=== PATIENT | male | born 1930 | race Caucasian/White ===

== ENCOUNTER 2017-08-15 11:14 | Inpatient (IN) | payer OTHER, MEDICARE ==
[~2017-08-15] VITALS: Ht 182.9 cm; Wt 71.5 kg
[2017-08-15] VITALS (15 sets, daily range): BP systolic 129–155; BP diastolic 64–87; PULSE 63–159; RESP 16–22; TEMP 97.9–98.5; O2SAT 92–100
[~2017-08-15 11:14] MED LIST: APIX5TAB PO; CARD240C6 PO; CEPH500C3 PO; FERR324T4 PO; GEMF600 PO; LUTE40CA2 PO; METO25 PO; SYMB160A INH; TYLE3 PO; VITA100020 SL; VITA250T5 PO
[2017-08-15] MEDS ORDERED: DILTIAZEM HCL 25 MG/5 ML VIAL IV ONE (11:30)
[2017-08-15] MEDS ORDERED: SODIUM CHLORIDE 0.9% FLUSH 10 ML FLUSH IVF PRN (11:30)
[2017-08-15] MEDS ORDERED: DILTIAZEM INJ 125 MG in SODIUM CHLORIDE 0.9% INJ 100 ML IV PRN (11:30)
[2017-08-15 11:42] LABS: AUTOMATED NEUTROPHIL # 8.7 TH/MM3 (1.8-7.7); BASOPHIL % 0.3 % (0.0-2.0); EOSINOPHIL % 0.3 % (0.0-4.0); HEMATOCRIT 36.8 % (39.0-51.0); HEMOGLOBIN 12.5 GM/DL (13.0-17.0); LYMPH % 15.4 % (9.0-44.0); LYMPHOCYTE # 1.8 TH/MM3 (1.0-4.8); MEAN CELL VOLUME 93.1 FL (80.0-100.0); MEAN CORPUSCULAR HEMOGLOBIN 31.6 PG (27.0-34.0); MEAN PLATELET VOLUME 7.4 FL (7.0-11.0); MONO % 7.4 % (0.0-8.0); MONOCYTE # 0.8 TH/MM3 (0-0.9); NEUT % 76.6 % (16.0-70.0); PLATELET COUNT 180 TH/MM3 (150-450); RED BLOOD COUNT 3.96 MIL/MM3 (4.50-5.90); RED CELL DISTRIBUTION WIDTH 14.2 % (11.6-17.2); WHITE BLOOD COUNT 11.4 TH/MM3 (4.0-11.0)
[2017-08-15 11:53] LABS: ALBUMIN 4.4 GM/DL (3.4-5.0); ALT (GPT) 27 U/L (12-78); AST (GOT) 26 U/L (15-37); BLOOD UREA NITROGEN 16 MG/DL (7-18); CHLORIDE 102 MEQ/L (98-107); CREATININE 0.89 MG/DL (0.60-1.30); GLOMERULAR FILTRATION RATE 81 ML/MIN (>89); GLUCOSE,RANDOM 128 MG/DL (74-106); SODIUM (NA) 136 MEQ/L (136-145)
[2017-08-15 11:58] LABS: ALKALINE PHOSPHATASE 134 U/L (45-117); TOTAL BILIRUBIN ADULT 0.8 MG/DL (0.2-1.0); TOTAL PROTEIN 8.8 GM/DL (6.4-8.2); TROPONIN I LESS THAN 0.02 NG/ML (0.02-0.05)
--- NOTE | 2017-08-15 11:59 | RADRPT ---
EXAM DATE/TIME: 08/15/2017 11:31 [place] COMPARISON: CHEST SINGLE AP, March 08, 2016, 11:38. INDICATIONS : Chest pain. MEDICAL HISTORY : Hypercholesterolemia. Congestive heart failure. SURGICAL HISTORY : CABG. Pacemaker. Aortic valve replacement. ENCOUNTER: Initial ACUITY: 1 day PAIN SCORE: 5/10 LOCATION: Bilateral chest FINDINGS: Bibasilar streakiness is noted consistent with atelectasis and/or mild infiltrates. The heart is stab le. Left subclavian dual lead pacemaker has its tips in the right atrium and right ventricle. Median sternotomy wires are noted status post cardiac surgery. CONCLUSION: Bibasilar streakiness consistent with atelectasis and/or mild infiltrates. Jus Garduno MD on August 15, 2017 at 11:55 Board Certified Radiologist. This report was verified electronically.
[2017-08-15] MEDS ORDERED: APIX5TAB PO (12:00)
[2017-08-15] MEDS ORDERED: LOSA50TA PO (12:00)
[2017-08-15] MEDS ORDERED: LUTE40CA2 PO (12:00)
[2017-08-15] MEDS ORDERED: METO25TA3 PO (12:00)
[2017-08-15] MEDS ORDERED: FERR325T18 PO (12:00)
[2017-08-15] MEDS ORDERED: FISHCAP4 PO (12:00)
[2017-08-15] MEDS ORDERED: SYMB160A INH (12:00)
[2017-08-15] MEDS ORDERED: ISOS60TA PO (12:00)
[2017-08-15] MEDS ORDERED: GEMF600T PO (12:00)
[2017-08-15] MEDS ORDERED: DILT1TAB6 PO (12:00)
[2017-08-15] MEDS ORDERED: NALOXONE HCL 0.4 MG/ML AMP IV PUSH PRN (15:45)
[2017-08-15] MEDS ORDERED: SODIUM CHLORIDE 0.9% FLUSH 10 ML FLUSH IV FLUSH PRN (15:45)
--- NOTE | 2017-08-15 18:19 | HHI.HP ---
HPI Service [facility] Primary Care Physician Queta Payne Do, Admission Diagnosis tachyarrhythmia Diagnoses: Travel History International Travel<30 Days: No Contact w/Intl Traveler <30 Da: No Traveled to Known Affected Are: No History of Present Illness hx from patient, ER MD communication and review of med records 2 am today, woke up, coughing like crazy had chest pains terribly nose was running and coughing noticed that his pulse was very fast that time did nto go away during night by am chest pain went away a bit, cough was still there, congestion is gone pulse was still hihg went to dr bonner, and pulse was 160 - was told to go to ER - so daughter drove him here he was light headed slight , no passing out no fever cough is usually slight, but today is worse was able to expectorate, but did not notice color no diarrhea no abdominal pain no blood in stool or urine no other urinary symptoms no significant sick contacts hx of afib stated he missed two pills last night, one is blood thinner but in the morning , he took medications to control heart rate - this was before he went to Dr Bonner's office Review of Systems Except as stated in HPI: all other systems reviewed are Neg Past Family Social History Past Medical History htn afib bradycardia- s/p ppm 8 yrs ago, battery replaced 1 yr ago valve replacement - aortic, bovine, 3 yrs ago cad s/p cabg 3 yrs ago copd 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 Past Surgical History cabg valve replacement - aortic coronary angiogram ppm 1970s subtotal gastrectomy for ulcers Allergies: Coded Allergies: No Known Allergies (Verified , 03/08/16) Family History mother- cancer of female parts brother- from etoh abuse another brother- drug abuse Social History used to smoke , quit 1971 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 used to drink heavily, but now drinks about 2 beers and 4 ounces of vodka about 5-6 times a week no drugs lives on his own, still drives, goes to gym and runs 2 miles on treadmill a day Physical Exam Vital Signs Vital Signs Date Time Temp Pulse Resp B/P (MAP) Pulse Ox O2 Delivery O2 Flow Rate FiO2 08/15/17 17:00 97.9 92 18 148/72 (97) 97 08/15/17 17:00 92 08/15/17 16:39 79 18 146/72 (96) 96 Room Air 08/15/17 15:14 68 22 155/70 (98) 96 Room Air 08/15/17 14:09 72 16 133/64 (87) 95 Room Air 08/15/17 13:36 63 17 129/64 (85) 97 Room Air 08/15/17 11:47 132 132/72 08/15/17 11:30 98 Nasal Cannula 2.00 08/15/17 11:30 100 Nasal Cannula 2.00 08/15/17 11:25 100 Nasal Cannula 2.00 08/15/17 11:20 98.3 158 18 136/84 (101) 98 08/15/17 11:16 98.1 159 18 137/86 (103) 95 Room Air Physical Exam GENERAL: This is a well-nourished, well-developed patient, in no apparent distress. very pleasant gentleman SKIN: No rashes, ecchymoses or lesions. Cool and dry. HEAD: Atraumatic. Normocephalic. No temporal or scalp tenderness. EYES: No scleral icterus. No injection or drainage. ENT: Nose without bleeding, purulent drainage or septal hematoma Airway patent. NECK: Trachea midline. No JVD. Supple, nontender, no meningeal signs. CARDIOVASCULAR: Regular rate and rhythm without murmurs, gallops, or rubs. RESPIRATORY: Clear to auscultation. Breath sounds equal bilaterally. No wheezes , rales, or rhonchi. GASTROINTESTINAL: Abdomen soft, non-tender, nondistended. No guarding. MUSCULOSKELETAL: Extremities without clubbing, cyanosis, or edema. . No calf tenderness. NEUROLOGICAL: Awake and alert.Motor and sensory grossly within normal limits. Normal speech. Laboratory Laboratory Tests Test 08/15/17 11:34 White Blood Count 11.4 Red Blood Count 3.96 Hemoglobin 12.5 Hematocrit 36.8 Mean Corpuscular Volume 93.1 Mean Corpuscular Hemoglobin 31.6 Mean Corpuscular Hemoglobin Concent 34.0 Red Cell Distribution Width 14.2 Platelet Count 180 Mean Platelet Volume 7.4 Neutrophils (%) (Auto) 76.6 Lymphocytes (%) (Auto) 15.4 Monocytes (%) (Auto) 7.4 Eosinophils (%) (Auto) 0.3 Basophils (%) (Auto) 0.3 Neutrophils # (Auto) 8.7 Lymphocytes # (Auto) 1.8 Monocytes # (Auto) 0.8 Eosinophils # (Auto) 0.0 Basophils # (Auto) 0.0 CBC Comment DIFF FINAL Differential Comment Blood Urea Nitrogen 16 Creatinine 0.89 Random Glucose 128 Total Protein 8.8 Albumin 4.4 Calcium Level 9.0 Alkaline Phosphatase 134 Aspartate Amino Transf (AST/SGOT) 26 Alanine Aminotransferase (ALT/SGPT) 27 Total Bilirubin 0.8 Sodium Level 136 Potassium Level 4.0 Chloride Level 102 Carbon Dioxide Level 27.0 Anion Gap 7 Estimat Glomerular Filtration Rate 81 Troponin I LESS THAN 0.02 Result Diagram: 08/15/17 1134 08/15/17 1134 Imaging Last 48 hours Impressions Chest X-Ray 08/15/17 1126 Signed Impressions: Service Date/Time: Tuesday, August 15, 2017 11:31 - CONCLUSION: Bibasilar streakiness consistent with atelectasis and/or mild infiltrates. Jus Garduno MD Caprini VTE Risk Assessment Caprini VTE Risk Assessment: Mod/High Risk (score >= 2) Caprini Risk Assessment Model Point Value = 1 Point Value = 2 Point Value = 3 Point Value = 5 Age 41-60 Minor surgery BMI > 25 kg/m2 Swollen legs Varicose veins or History of unexplained or recurrent spontaneous Oral contraceptives or hormone replacement Sepsis (< 1 month) Serious lung disease, including pneumonia (< 1 month) Abnormal pulmonary function Acute myocardial infarction Congestive heart failure (< 1 month) History of inflammatory bowel disease Medical patient at bed rest Age 61-74 Arthroscopic surgery Major open surgery (> 45 min) Laparoscopic surgery (> 45 min) Malignancy Confined to bed (> 72 hours) Immobilizing plaster cast Central venous access Age >= 75 History of VTE Family history of VTE Factor V Leiden Prothrombin [id number] Lupus anticoagulant Anticardiolipin antibodies Elevated serum homocysteine Heparin-induced thrombocytopenia Other congenital or acquired thrombophilia Stroke (< 1 month) Elective arthroplasty Hip, pelvis, or leg fracture Acute spinal cord injury (< 1 month) Prophylaxis Regimen Total Risk Factor Score Risk Level Prophylaxis Regimen 0-1 Low Early ambulation 2 Moderate Order ONE of the following: *Sequential Compression Device (SCD) *Heparin 5000 units SQ BID 3-4 Higher Order ONE of the following medications: *Heparin 5000 units SQ TID *Enoxaparin/Lovenox 40 mg SQ daily (WT < 150 kg, CrCl > 30 mL/min) *Enoxaparin/Lovenox 30 mg SQ daily (WT < 150 kg, CrCl > 10-29 mL/min) *Enoxaparin/Lovenox 30 mg SQ BID (WT < 150 kg, CrCl > 30 mL/min) AND/OR *Sequential Compression Device (SCD) 5 or more Highest Order ONE of the following medications: *Heparin 5000 units SQ TID (Preferred with Epidurals) *Enoxaparin/Lovenox 40 mg SQ daily (WT < 150 kg, CrCl > 30 mL/min) *Enoxaparin/Lovenox 30 mg SQ daily (WT < 150 kg, CrCl > 10-29 mL/min) *Enoxaparin/Lovenox 30 mg SQ BID (WT < 150 kg, CrCl > 30 mL/min) AND *Sequential Compression Device (SCD) Assessment and Plan Assessment and Plan Impression: afib with rvr - secondary to acute infection plus missing meds bilateral pneumonia - early but symptomatic with constant cough htn afib bradycardia- s/p ppm 8 yrs ago, battery replaced 1 yr ago valve replacement - aortic, bovine, 3 yrs ago cad s/p cabg 3 yrs ago copd 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 Plan: start levofloxacin 750mg iv q24hrs cardizem drip was d/rojas within few hrs in ER restart home dose of rate control meds nursing to call daughter to update med rec- current one is not valid PT eval in am make pt walk around and see how he feels in terms of o2 sat and tachycardia in am if all well, and if he feels strong, likely could be discharged in am with po levofloxacin dvt prophylaxis - on eliquis pt is admitted as inpatient, symptomatic bilateral pneumonia with tachycardia, multiple medical comorbid conditions Discussed Condition With patient, ER MD, nursing staff Beba Watson MD Aug 15, 2017 18:19
--- NOTE | 2017-08-15 18:32 | PD ---
HPI Chief Complaint: Chest Pain Time Seen by Provider: 11:19 Travel History International Travel<30 days: No Contact w/Intl Traveler<30days: No Traveled to known affect area: No History of Present Illness HPI This is an 86-year-old male who presents to the emergency department with a history of atrial fibrillation, CABG, valvular surgery and pacemaker who presents to the emergency department with a rapid heart rate that woke him up from sleep at 2 AM. He says he felt palpitations, constant, moderate severity, with some associated chest heaviness. He says he did miss his nighttime medicines last night but he took his diltiazem in the morning yesterday and today. The rapid heart rate has persisted throughout the morning and has been in the 150s to 160s so he came to the emergency department. PFSH Past Medical History Hx Anticoagulant Therapy: Yes Arthritis: Yes (BACK) Asthma: No Atrial Fibrillation: Yes Autoimmune Disease: No Blood Disorders: No Anxiety: No Depression: No Heart Rhythm Problems: Yes (AF AT TIMES) Cancer: Yes (SKIN) Cardiac Catheterization: Yes (2 CARDIAC CATHS AROUND 20 YEARS AGO) Cardiovascular Problems: Yes High Cholesterol: Yes Chemotherapy: No Chest Pain: Yes Congestive Heart Failure: Yes COPD: No Cerebrovascular Accident: Yes (TIA X 2) Diabetes: No Diminished Hearing: No Endocrine: No Gastrointestinal Disorders: Yes (ULCER HX/ HEMIGASTRECTOMY, GERD, DIARRHEA) GERD: No Glaucoma: Yes Genitourinary: No Headaches: Yes Hepatitis: No Hiatal Hernia: No Hypertension: Yes Immune Disorder: No Kidney Stones: No Musculoskeletal: Yes (BACK PAIN) Neurologic: Yes (RIGHT ARM TRANSIENT NUMBNESS/ UNSTEADY GAIT) Psychiatric: Yes (CLAUSTRAPHOBIA) Reproductive: No Respiratory: No Migraines: No Myocardial Infarction: No Radiation Therapy: No Renal Failure: No Seizures: No Sickle Cell Disease: No Sleep Apnea: No Thyroid Disease: No Ulcer: Yes Past Surgical History Abdominal Surgery: Yes (HEMIGASTRECTOMY) AICD: No Appendectomy: No Arteriovenous Shunt: No Body Medical Devices: PACEMAKER FOR 6 YEARS Cardiac Surgery: Yes (aortic heart valve, and bypass. cardiac ABLATION, pacer) Cholecystectomy: No Coronary Artery Bypass Graft: Yes Ear Surgery: No Endocrine Surgery: No Eye Surgery: No Genitourinary Surgery: No Gynecologic Surgery: No Insulin Pump: No Joint Replacement: No Neurologic Surgery: No Oral Surgery: No Pacemaker: Yes (BIOTRONIC) Thoracic Surgery: No Valve Replacement: Yes Other Surgery: Yes Social History Alcohol Use: Yes Tobacco Use: No Substance Use: No Allergies-Medications (Allergen,Severity, Reaction): Coded Allergies: No Known Allergies (Verified , 03/08/16) Reported Meds & Prescriptions Reported Meds & Active Scripts Active Keflex (Cephalexin Monohydrate) 500 Mg Cap 500 Mg PO TID Reported Diltiazem ER 24 HR 300 Mg Arabella 300 Mg PO DAILY Metoprolol Tartrate 25 Mg Tab 25 Mg PO BID Losartan (Losartan Potassium) 50 Mg Tab 50 Mg PO DAILY Lutein 40 Mg Cap 40 Mg PO DAILY Ferrous Sulfate 325 Mg (65 Mg Iron) Tablet 325 Mg PO DAILY Symbicort Inh (Budesonide/Formoterol Fumarate) 160-4.5 Mcg/Act Aero 2 Puff INH Q12HR Isosorbide Mononitrate ER (Isosorbide Mononitrate) 60 Mg Tab 60 Mg PO DAILY Eliquis (Apixaban) 5 Mg Tab 5 Mg PO BID Gemfibrozil 600 Mg Tab 600 Mg PO BIDAC Take 30 minutes prior to breakfast and dinner. Fish Oil + D3 (Fish Oil-Cholecalciferol) 1,200-1,000 Mg-Unit Cap 1 Cap PO DAILY Symbicort (Budesonide/Formoterol Fumarate) 160 Mcg/4.5 Mcg Aer 2 Puff INH BID * SHAKE WELL BEFORE USE * Vitamin B-12 Extended Rel (Miscellaneous Medication) 1,000 Mcg Subl 1,000 Mcg SL DAILY Ferrous Sulfate 325 Mg Tab 325 Mg PO DAILY Lutein 40 Mg Cap 40 Mg PO DAILY Vitamin B-12 (Cyanocobalamin) 250 Mcg Tab 250 Mcg PO DAILY Metoprolol Tartrate 25 mg (Metoprolol Tartrate) 25 Mg Tab 25 Mg PO BID Cardizem CD 240 mg (Diltiazem CD 240 mg) 240 Mg/24 Cap 240 Mg PO DAILY Lopid (Gemfibrozil) 600 Mg Tab 600 Mg PO BID Review of Systems Except as stated in HPI: all other systems reviewed are Neg Physical Exam Narrative GENERAL:Well appearing, no acute distress SKIN: Focused skin assessment warm and dry. HEAD: Atraumatic. Normocephalic. EYES: Pupils equal and round. No injection or drainage. ENT: Moist mucous membranes NECK: Trachea midline. CARDIOVASCULAR: Tachycardic. No murmur appreciated. RESPIRATORY: Clear to auscultation. Breath sounds equal bilaterally. GASTROINTESTINAL: Abdomen soft, non-tender, nondistended. MUSCULOSKELETAL: No obvious deformities. NEUROLOGICAL: Awake and alert. No obvious cranial nerve deficits. Moving all extremities. PSYCHIATRIC: Appropriate mood and affect; insight and judgment normal. Data Data Last Documented VS Vital Signs Date Time Temp Pulse Resp B/P (MAP) Pulse Ox O2 Delivery O2 Flow Rate FiO2 08/15/17 15:14 68 22 155/70 (98) 96 Room Air 08/15/17 11:30 2.00 08/15/17 11:20 98.3 Orders Orders Electrocardiogram (08/15/17 11:26) Complete Blood Count With Diff (08/15/17 11:26) Comprehensive Metabolic Panel (08/15/17 11:26) Troponin I (08/15/17 11:26) Chest, Single Ap (08/15/17 11:26) Ecg Monitoring (08/15/17 11:26) Bilateral Bp Monitoring (08/15/17 11:26) Iv Access Insert/Monitor (08/15/17 11:26) Oximetry (08/15/17 11:26) Oxygen Administration (08/15/17 11:26) Sodium Chloride 0.9% Flush (Ns Flush) (08/15/17 11:30) Diltiazem Inj (Cardizem Inj) (08/15/17 11:30) Vital Signs (Adult) Q15MX4,Q4H (08/15/17 11:26) Elocution Teacher / Telemetry ZAHRA.Q8H (08/15/17 11:26) Cardiac Rhythm ZAHRA.Q8H (08/15/17 11:26) Notify Dr: Other (08/15/17 11:26) Diltiazem Inj (Cardizem Inj) (08/15/17 11:30) Electrocardiogram (08/15/17 11:26) Admit Order (Ed Use Only) (08/15/17 15:17) Labs Laboratory Tests Test 08/15/17 11:34 White Blood Count 11.4 TH/MM3 Red Blood Count 3.96 MIL/MM3 Hemoglobin 12.5 GM/DL Hematocrit 36.8 % Mean Corpuscular Volume 93.1 FL Mean Corpuscular Hemoglobin 31.6 PG Mean Corpuscular Hemoglobin Concent 34.0 % Red Cell Distribution Width 14.2 % Platelet Count 180 TH/MM3 Mean Platelet Volume 7.4 FL Neutrophils (%) (Auto) 76.6 % Lymphocytes (%) (Auto) 15.4 % Monocytes (%) (Auto) 7.4 % Eosinophils (%) (Auto) 0.3 % Basophils (%) (Auto) 0.3 % Neutrophils # (Auto) 8.7 TH/MM3 Lymphocytes # (Auto) 1.8 TH/MM3 Monocytes # (Auto) 0.8 TH/MM3 Eosinophils # (Auto) 0.0 TH/MM3 Basophils # (Auto) 0.0 TH/MM3 CBC Comment DIFF FINAL Differential Comment Blood Urea Nitrogen 16 MG/DL Creatinine 0.89 MG/DL Random Glucose 128 MG/DL Total Protein 8.8 GM/DL Albumin 4.4 GM/DL Calcium Level 9.0 MG/DL Alkaline Phosphatase 134 U/L Aspartate Amino Transf (AST/SGOT) 26 U/L Alanine Aminotransferase (ALT/SGPT) 27 U/L Total Bilirubin 0.8 MG/DL Sodium Level 136 MEQ/L Potassium Level 4.0 MEQ/L Chloride Level 102 MEQ/L Carbon Dioxide Level 27.0 MEQ/L Anion Gap 7 MEQ/L Estimat Glomerular Filtration Rate 81 ML/MIN Troponin I LESS THAN 0.02 NG/ML MDM Medical Decision Making Medical Screen Exam Complete: Yes Emergency Medical Condition: Yes Interpretation(s) Afebrile, tachycardic, normotensive Mild leukocytosis Mild anemia Electrolytes are reassuring Troponin is less than 0.02 Chest x-ray demonstrates some bibasilar streakiness EKG: Tachycardic at a rate of 130, irregular, concerning for atrial fibrillation Differential Diagnosis Atrial fibrillation with rapid ventricular response, SVT, electrolyte abnormality, myocardial infarction Narrative Course This is an 86-year-old male who presents to the emergency department with palpitations. He has a history of atrial fibrillation in the past and failed to take his rate control medications last evening which may have contributed to his presentation today. Here he was placed on a monitor and an IV was established. With the VAC his heart rate was in the 150s 160s and their rhythm strips appeared irregular concerning for atrial fibrillation. Here in the emergency department he was given 15 mg of IV diltiazem. He was placed on a diltiazem drip at 5. He was able to be titrated off of the infusion. His heart rate improved to the 70s to 80s. He did have some chest discomfort. Labs are obtained which were all reassuring. I think patient should be observed in the setting of tachyarrhythmia and extensive cardiac history. Diagnosis Primary Impression: Tachyarrhythmia Admitting Information Admitting Physician Requests: Admit Abbey Graf MD Aug 15, 2017 18:32
[2017-08-15] MEDS ORDERED: LISI10TA3 PO (18:35)
[2017-08-15] MEDS: GEMFIBROZIL 600 MG TAB PO SCH (22:10)
[2017-08-15] MEDS: LEVOFLOXACIN 750 MG PREMIX INJ 150 ML IV SCH (22:11)
[2017-08-15] MEDS: APIXABAN 5 MG TABLET PO SCH (22:11)
[2017-08-15] MEDS: SODIUM CHLORIDE 0.9% FLUSH 10 ML FLUSH IV FLUSH SCH (22:11)
[2017-08-15 22:24] LABS: TROPONIN I 0.03 NG/ML (0.02-0.05)
[2017-08-16] VITALS (24 sets, daily range): BP systolic 99–146; BP diastolic 49–93; PULSE 64–158; RESP 16–24; TEMP 98–98.9; O2SAT 91–94
[2017-08-16 03:33] LABS: AUTOMATED NEUTROPHIL # 6.8 TH/MM3 (1.8-7.7); BASOPHIL % 0.4 % (0.0-2.0); EOSINOPHIL # 0.1 TH/MM3 (0-0.4); HEMATOCRIT 34.2 % (39.0-51.0); LYMPH % 16.7 % (9.0-44.0); LYMPHOCYTE # 1.5 TH/MM3 (1.0-4.8); MEAN CORPUSCULAR HEMOGLOBIN 32.4 PG (27.0-34.0); MEAN CORPUSCULAR HGB CONC 35.2 % (32.0-36.0); MEAN PLATELET VOLUME 7.5 FL (7.0-11.0); MONO % 8.2 % (0.0-8.0); MONOCYTE # 0.7 TH/MM3 (0-0.9); NEUT % 73.7 % (16.0-70.0); PLATELET COUNT 183 TH/MM3 (150-450); RED BLOOD COUNT 3.72 MIL/MM3 (4.50-5.90); WHITE BLOOD COUNT 9.2 TH/MM3 (4.0-11.0)
[2017-08-16 03:51] LABS: BICARBONATE 27.7 MEQ/L (21.0-32.0); CALCIUM 8.8 MG/DL (8.5-10.1); CREATININE 0.71 MG/DL (0.60-1.30)
[2017-08-16 03:54] LABS: TROPONIN I 0.03 NG/ML (0.02-0.05)
[2017-08-16] MEDS ORDERED: LISINOPRIL 10 MG TAB PO SCH (09:00)
[2017-08-16] MEDS ORDERED: DILTIAZEM INJ 125 MG in SODIUM CHLORIDE 0.9% INJ 100 ML IV PRN (09:45)
[2017-08-16] MEDS ORDERED: LABETALOL HCL 100 MG/20 ML VIAL IV PUSH ONE (09:45)
[2017-08-16] MEDS ORDERED: DILTIAZEM HCL 25 MG/5 ML VIAL IV PUSH ONE (09:45)
[2017-08-16] MEDS: ISOSORBIDE MONONITRATE 60 MG TAB PO SCH (10:21)
[2017-08-16] MEDS: APIXABAN 5 MG TABLET PO SCH ×2 (10:22→20:32)
[2017-08-16] MEDS: DILTIAZEM-CD 300 MG CAP ER PO SCH (10:22)
[2017-08-16] MEDS: GEMFIBROZIL 600 MG TAB PO SCH ×2 (10:22→20:31)
[2017-08-16] MEDS: FERROUS FUMARATE 325 MG TAB (106 MG ELEMENTAL IRON) PO SCH (10:22)
[2017-08-16] MEDS: SODIUM CHLORIDE 0.9% FLUSH 10 ML FLUSH IV FLUSH SCH ×2 (10:23→20:32)
--- NOTE | 2017-08-16 10:47 | HHI.PR ---
Subjective Remarks Pt was evaluated around 9:30 this morning. I was notified that pt's HR was in the 160's. apparently this was noted for about 20 mins. I quickly evaluated the pt, he had just gotten for a walk w PT and HR was up. Pt now eating breakfast. He states he did feel some palpitations w walking but when I saw him, sitting up in his bed, he had no symptoms, no lightheadedness or dizziness. Pt denied to me any chest pains. Actually asked me if he could go home today Objective Vitals Vital Signs Date Time Temp Pulse Resp B/P (MAP) Pulse Ox O2 Delivery O2 Flow Rate FiO2 08/16/17 10:27 155 127/93 08/16/17 09:00 124 08/16/17 08:00 110 08/16/17 07:00 123 08/16/17 07:00 98.9 110 16 128/83 (98) 94 08/16/17 06:03 104 08/16/17 05:21 86 08/16/17 04:32 80 08/16/17 03:30 94 08/16/17 03:30 98.1 98 19 146/79 (101) 94 08/16/17 02:02 114 08/16/17 01:09 96 08/16/17 00:27 101 08/15/17 23:20 98.5 109 18 145/87 (106) 92 08/15/17 23:10 82 08/15/17 22:30 100 08/15/17 21:00 88 08/15/17 20:30 92 08/15/17 19:40 94 08/15/17 19:40 98.4 82 18 146/80 (102) 94 08/15/17 18:00 80 08/15/17 17:00 97.9 92 18 148/72 (97) 97 08/15/17 17:00 92 08/15/17 16:39 79 18 146/72 (96) 96 Room Air 08/15/17 15:14 68 22 155/70 (98) 96 Room Air 08/15/17 14:09 72 16 133/64 (87) 95 Room Air 08/15/17 13:36 63 17 129/64 (85) 97 Room Air 08/15/17 11:47 132 132/72 08/15/17 11:30 98 Nasal Cannula 2.00 1/3/18 11:30 100 Nasal Cannula 2.00 08/15/17 11:25 100 Nasal Cannula 2.00 08/15/17 11:20 98.3 158 18 136/84 (101) 98 08/15/17 11:16 98.1 159 18 137/86 (103) 95 Room Air I/O 08/15/17 08/15/17 08/15/17 08/16/17 08/16/17 08/16/17 07:00 15:00 23:00 07:00 15:00 23:00 Intake Total 12 ml 390 ml Balance 12 ml 390 ml Intake Oral 240 ml IV Total 12 ml 150 ml # Voids 4 Result Diagram: 08/16/17 0313 08/16/17 0313 Imaging Last Impressions Chest X-Ray 08/15/17 1126 Signed Impressions: Service Date/Time: Tuesday, August 15, 2017 11:31 - CONCLUSION: Bibasilar streakiness consistent with atelectasis and/or mild infiltrates. Jus Garduno MD Objective Remarks GENERAL: Elderly male, eating breakfast. HEAD: Atraumatic. Normocephalic. No temporal or scalp tenderness. EYES: Extraocular motions intact. ENT: Nose without drainage. Airway patent. NECK: Trachea midline. CARDIOVASCULAR: tachycardic. difficult to know if it is irregular at this point RESPIRATORY: Clear to auscultation. Breath sounds equal bilaterally. No wheezes GASTROINTESTINAL: Abdomen soft, non-tender, nondistended. No guarding. MUSCULOSKELETAL: Extremities without edema. NEUROLOGICAL: Awake and alert. Motor and sensory grossly within normal limits. Normal speech. A/P Assessment and Plan afib with rvr - secondary to acute infection plus missing meds bilateral pneumonia - early but symptomatic with constant cough on levofloxacin 750mg iv q24hrs I have restarted the cardizem drip as it was d/rojas within few hrs in ER. Pt's home meds have been restarted. Pt tells me that he is known to Dr. Maria. I have consulted her for further recs. restart home dose of rate control meds PT did work w pt this morning. if all well, and if he feels strong, likely could be discharged in am with po levofloxacin I have reviewed chest x-ray, concerning for mild infiltrates vs atelectasis. encourage us of IS q1hr while awake. dvt prophylaxis : eliquis Discharge Planning cards consult pending. cardizem gtt restarted. Addie Acevedo MD Aug 16, 2017 10:47
[2017-08-16] MEDS ORDERED: METOPROLOL TARTRATE 25 MG TAB PO ONE (11:30)
--- NOTE | 2017-08-16 18:39 | MB ---
cc: CINTHIA FERREIRA MD DATE OF CONSULTATION 08/16/17 REASON FOR CONSULTATION Atrial fibrillation with rapid ventricular rate. HISTORY OF PRESENT ILLNESS Mr. Ramon is an 86-year-old man who does have a history of CHF, Atrial fibrillation, previous coronary artery bypass graft with VERDE to LAD and AVR in October of 2013. The patient reports that he woke up in the morning coughing and had a rapid heartbeat. He did subsequently come to the hospital for further evaluation. The patient reports that he missed some of his medications and notes that he did take his Diltiazem and had not missed that. In the emergency room, he was found to have bibasilar pneumonia and A. Fib with RVR at 150 beats a minute. PAST MEDICAL HISTORY 1. Significant for aortic stenosis with AVR in 2013, atrial fibrillation with a CHADS vasc score of four. He is status post ablation in September of 2010 with recurrent atrial fibrillation. 2. Carotid artery stenosis that is mild to moderate bilaterally. 3. CHF, 4. CAD with previous coronary artery bypass graft 5. CVA, 6. Diabetes 7. Hypertension, 8. Hyperlipidemia 9. Moderate mitral regurgitation 10. Biotronik pacemaker 11. Ulcers with partial gastrectomy 12. Vertigo. SOCIAL HISTORY The patient is a former smoker. FAMILY HISTORY Negative for CAD. ALLERGIES NO KNOWN DRUG ALLERGIES. MEDICATIONS Outpatient include 1. Diltiazem 300 mg a day, 2. Eliquis 5 mg b.i.d. 3. Iron 4. Gemfibrozil 5. Imdur 30 mg a day. 6. Lisinopril 10 mg a day 7. Lutein 8. Symbicort 9. B12. REVIEW OF SYSTEMS Except as mentioned in the HPI all 12 systems are negative. PHYSICAL EXAMINATION VITAL SIGNS: 80, 127/93, respiratory rate 16. GENERAL: He is a well-appearing man who is in no apparent distress. NECK: Free from JVD. LUNGS: Bilaterally clear although decreased in the bases. CARDIOVASCULAR: He has a regular rhythm. Heart tones are normal. ABDOMEN: Soft. EXTREMITIES: Free from edema. LABORATORY FINDINGS Initial white count of 11.4, his hemoglobin is 12.0. Serial troponins are 0.02, 0.03, 0.03. Creatinine is 0.71. IMAGING STUDIES Chest x-ray shows bibasilar infiltrates. CARDIOLOGY STUDIES EKG shows atrial fibrillation with rapid ventricular rate at 157 beats a minute. IMPRESSION 1. Atrial fibrillation - the patient does have a history of the same. He was rate controlled with IV Cardizem. I am going to add metoprolol 25 mg q. 12 to assist with his rate control. I would continue the patient on Eliquis. 2. Pneumonia - this is being managed by the primary team. 3. Coronary artery disease - the patient seems reasonably stable at this point. 4. Hypertension - I am going to discontinue his lisinopril to ensure we have some room with his blood pressure given we are adding the metoprolol. Cinthia Ferreira M.D. ZEB/ /4:23 PM /6:04 PM
[2017-08-16] MEDS: LEVOFLOXACIN 750 MG PREMIX INJ 150 ML IV SCH (20:32)
[2017-08-16] MEDS: METOPROLOL TARTRATE 25 MG TAB PO SCH (20:32)
[2017-08-17] VITALS (12 sets, daily range): BP systolic 122–126; BP diastolic 69–77; PULSE 64–121; RESP 20; TEMP 98.2–98.4; O2SAT 92–93
--- NOTE | 2017-08-17 08:37 | PD.CARD.PN ---
Subjective Subjective Remarks PT without CV complaints Objective Medications Current Medications Medications (Trade) Dose Ordered Sig/[place] Route Start Time Stop Time Status Last Admin (NS Flush) 2 ml UNSCH PRN IV FLUSH 08/15/17 15:45 (NS Flush) 2 ml BID IV FLUSH 08/15/17 21:00 08/16/17 20:32 (Narcan Inj) 0.4 mg UNSCH PRN IV PUSH 08/15/17 15:45 Levofloxacin/ Dextrose 150 ml @ 100 mls/hr Q24H IV 08/15/17 19:00 08/16/17 20:32 (Eliquis) 5 mg BID PO 08/15/17 21:00 08/16/17 20:32 (Cardizem Cd) 300 mg DAILY PO 08/16/17 09:00 08/16/17 10:22 (Lopid) 600 mg BID PO 08/15/17 21:00 08/16/17 20:31 (Imdur) 60 mg DAILY PO 08/16/17 09:00 08/16/17 10:21 (Hemocyte) 325 mg DAILY PO 08/16/17 09:00 08/16/17 10:22 Diltiazem HCl 125 mg/Sodium Chloride 125 ml @ 5 mls/hr TITRATE PRN IV 08/16/17 09:45 08/16/17 10:27 (Lopressor) 25 mg Q12HR PO 08/16/17 21:00 08/16/17 20:32 Vital Signs / I&O Vital Signs Date Time Temp Pulse Resp B/P (MAP) Pulse Ox O2 Delivery O2 Flow Rate FiO2 08/17/17 07:31 93 Room Air 08/17/17 07:31 98.4 78 20 122/77 (92) 93 08/17/17 06:00 80 08/17/17 05:00 74 08/17/17 04:00 64 08/17/17 03:00 70 08/17/17 03:00 98.2 76 20 126/69 (88) 92 08/17/17 03:00 92 Room Air 08/17/17 02:00 74 08/17/17 01:00 72 08/17/17 00:00 76 08/16/17 23:00 91 Room Air 08/16/17 23:00 70 1/4/18 23:00 98.2 73 22 116/59 (78) 91 08/16/17 22:00 76 08/16/17 21:00 88 08/16/17 20:00 72 08/16/17 19:00 98.0 77 24 99/54 (69) 91 08/16/17 19:00 91 Room Air 08/16/17 19:00 64 08/16/17 18:00 96 08/16/17 17:00 64 08/16/17 16:00 74 08/16/17 15:00 98.4 78 18 101/49 (66) 93 08/16/17 15:00 93 Room Air 08/16/17 15:00 82 08/16/17 14:00 80 08/16/17 13:00 106 08/16/17 12:00 98 08/16/17 11:00 94 Room Air 08/16/17 11:00 155 16 127/93 (104) 94 08/16/17 11:00 102 08/16/17 10:27 155 127/93 08/16/17 10:00 158 08/16/17 09:00 124 I/O 08/16/17 08/16/17 08/16/17 08/17/17 08/17/17 08/17/17 07:00 15:00 23:00 07:00 15:00 23:00 Intake Total 390 ml 990.6 ml 240 ml Output Total 300 ml Balance 390 ml 990.6 ml -60 ml Intake Oral 240 ml 960 ml 240 ml IV Total 150 ml 30.6 ml Output Urine Total 300 ml # Voids 4 3 # Bowel Movements 1 Physical Exam GENERAL: Well developed, well nourished. No acute distress. HEENT: Jugular venous pressure is normal. CHEST: Lungs clear to auscultation bilaterally. Unlabored respiratory effort. CARDIAC: Regular rate and rhythm without S3, S4, or murmur. ABDOMEN: Soft, nontender, no hepatosplenomegaly. Bowel sounds present. EXTREMITIES: No clubbing, cyanosis, or edema. Imaging Last 72 hours Impressions Chest X-Ray 08/15/17 1126 Signed Impressions: Service Date/Time: Tuesday, August 15, 2017 11:31 - CONCLUSION: Bibasilar streakiness consistent with atelectasis and/or mild infiltrates. Jus Garduno MD Assessment and Plan Assessment and Plan AF - rate controlled on PO diltiazem and metoprolol; continue same Pneumonia- antibiotics per primary team Dispo- ok for d/c from CV perspective and follow up next week -available PRStephany Pringle MD Aug 17, 2017 08:37
[2017-08-17] MEDS ORDERED: METO25TA3 PO (08:55)
[2017-08-17] MEDS ORDERED: LEVA750T9 PO (08:59)
--- NOTE | 2017-08-17 09:01 | HHI.PR ---
Subjective Remarks Pt feeling well. Denies any CP/SOB/palpitations/n/v or any lightheadedness or dizziness. asks to go home today Objective Vitals Vital Signs Date Time Temp Pulse Resp B/P (MAP) Pulse Ox O2 Delivery O2 Flow Rate FiO2 08/17/17 07:31 93 Room Air 08/17/17 07:31 98.4 78 20 122/77 (92) 93 08/17/17 06:00 80 08/17/17 05:00 74 08/17/17 04:00 64 08/17/17 03:00 70 08/17/17 03:00 98.2 76 20 126/69 (88) 92 08/17/17 03:00 92 Room Air 08/17/17 02:00 74 08/17/17 01:00 72 08/17/17 00:00 76 08/16/17 23:00 91 Room Air 08/16/17 23:00 70 08/16/17 23:00 98.2 73 22 116/59 (78) 91 08/16/17 22:00 76 08/16/17 21:00 88 08/16/17 20:00 72 08/16/17 19:00 98.0 77 24 99/54 (69) 91 08/16/17 19:00 91 Room Air 08/16/17 19:00 64 08/16/17 18:00 96 08/16/17 17:00 64 08/16/17 16:00 74 08/16/17 15:00 98.4 78 18 101/49 (66) 93 08/16/17 15:00 93 Room Air 08/16/17 15:00 82 08/16/17 14:00 80 08/16/17 13:00 106 08/16/17 12:00 98 08/16/17 11:00 94 Room Air 08/16/17 11:00 155 16 127/93 (104) 94 08/16/17 11:00 102 08/16/17 10:27 155 127/93 08/16/17 10:00 158 08/16/17 09:00 124 I/O 08/16/17 08/16/17 08/16/17 08/17/17 08/17/17 08/17/17 06:59 14:59 22:59 06:59 14:59 22:59 Intake Total 390 ml 990.6 ml 240 ml Output Total 300 ml Balance 390 ml 990.6 ml -60 ml Intake Oral 240 ml 960 ml 240 ml IV Total 150 ml 30.6 ml Output Urine Total 300 ml # Voids 4 3 # Bowel Movements 1 Result Diagram: 08/16/17 0313 08/16/17 0313 Imaging Last Impressions Chest X-Ray 08/15/17 1126 Signed Impressions: Service Date/Time: Tuesday, August 15, 2017 11:31 - CONCLUSION: Bibasilar streakiness consistent with atelectasis and/or mild infiltrates. Jus Garduno MD Objective Remarks GENERAL: Elderly male, laying in bed, pleasant EYES: Extraocular motions intact. ENT: Nose without drainage. Airway patent. NECK: Trachea midline. CARDIOVASCULAR: RRR w no murmurs RESPIRATORY: Clear to auscultation. Breath sounds equal bilaterally. No wheezes GASTROINTESTINAL: Abdomen soft, non-tender, nondistended. No guarding. MUSCULOSKELETAL: Extremities without edema. NEUROLOGICAL: Awake and alert. Motor and sensory grossly within normal limits. Normal speech. A/P Assessment and Plan afib with rvr - secondary to acute infection plus missing meds bilateral pneumonia - early but symptomatic with constant cough which has no much improved. on levofloxacin 750mg iv q24hrs, transition to po s/p cardizem drip. on PO cardizem and po metoprolol. Script ordered for the metoprolol. d/c lisinopril and pt has been notified, f/u w Dr. Maria as an outpatient. PT recommends no home PT I have reviewed chest x-ray, concerning for mild infiltrates vs atelectasis. encourage us of IS q1hr while awake. Pt being treated for early PNA and has responded to treatment. script for levaquin in chart. dvt prophylaxis : eliquis Discharge Planning Pt has been cleared by Cards per RN d/c home today f/u w PCP and cards as outpatient scripts in chart heart healthy diet condition: Addie Zurita MD Aug 17, 2017 09:00
[2017-08-17] MEDS: METOPROLOL TARTRATE 25 MG TAB PO SCH (09:08)
[2017-08-17] MEDS: APIXABAN 5 MG TABLET PO SCH (09:08)
[2017-08-17] MEDS: ISOSORBIDE MONONITRATE 60 MG TAB PO SCH (09:08)
[2017-08-17] MEDS: GEMFIBROZIL 600 MG TAB PO SCH (09:09)
[2017-08-17] MEDS: FERROUS FUMARATE 325 MG TAB (106 MG ELEMENTAL IRON) PO SCH (09:09)
[2017-08-17] MEDS: DILTIAZEM-CD 300 MG CAP ER PO SCH (09:09)
[2017-08-17] MEDS: SODIUM CHLORIDE 0.9% FLUSH 10 ML FLUSH IV FLUSH SCH (09:10)
--- NOTE | 2017-08-17 23:21 | EKG ---
Date Performed: 08/16/2017 Time Performed: 10:17:58 PTAGE: 86 years EKG: Probable supraventricular tachycardia Left ventricular hypertrophy Extensive ST-T changes m ay be due to hypertrophy and/or ischemia Abnormal ECG PREVIOUS TRACING : 08/15/2017 12.52 Compared to the previous tracing SVT is new DOCTOR: Andi Saavedra Interpretating Date/Time 08/17/2017 23:19:55
--- NOTE | 2017-08-18 | EKG ---
Date Performed: 08/15/2017 Time Performed: 12:52:50 PTAGE: 86 years EKG: Regular rhythm ST DEVIATION AND MODERATE T-WAVE ABNORMALITY, CONSIDER ANTEROLATERAL ISCHEMI A ST DEVIATION AND MODERATE T-WAVE ABNORMALITY, CONSIDER INFERIOR ISCHEMIA ABNORMAL ECG PREVIOUS TRACING : 04/19/2016 14.19 DOCTOR: Kenton Lay Interpretating Date/Time 08/17/2017 23:59:14
--- NOTE | 2017-08-18 00:07 | EKG ---
Date Performed: 08/15/2017 Time Performed: 11:26:42 PTAGE: 86 years EKG: SINUS TACHYCARDIA ST DEVIATION AND MODERATE T-WAVE ABNORMALITY, CONSIDER LATERAL ISCHEMIA S T DEVIATION AND MODERATE T-WAVE ABNORMALITY, CONSIDER INFERIOR ISCHEMIA ABNORMAL ECG NO PREVIOUS TRACING DOCTOR: Kenton Lay Interpretating Date/Time 08/18/2017 00:06:37
== END 2017-08-17 10:45 | disposition home or self-care (01) | DRG 308 ==
LOC: NEPE 11:14 → NEDA 15:18 → HCIS 16:48
PROVIDERS: ADMIT Hospitalist; ATTEND Hospitalist
DX: I48.91 Unspecified atrial fibrillation (principal); J18.9 Pneumonia, unspecified organism; I11.0 Hypertensive heart disease with heart failure; J44.0 Chronic obstructive pulmonary disease with (acute) lower respiratory infection; I50.9 Heart failure, unspecified; E11.9 Type 2 diabetes mellitus without complications; K21.9 Gastro-esophageal reflux disease without esophagitis; I25.10 Atherosclerotic heart disease of native coronary artery without angina pectoris; H40.9 Unspecified glaucoma; E78.5 Hyperlipidemia, unspecified; I65.29 Occlusion and stenosis of unspecified carotid artery; M19.90 Unspecified osteoarthritis, unspecified site; R00.0 Tachycardia, unspecified; Z95.0 Presence of cardiac pacemaker; Z86.73 Personal history of transient ischemic attack (TIA), and cerebral infarction without residual deficits; Z87.891 Personal history of nicotine dependence; Z95.3 Presence of xenogenic heart valve; Z95.1 Presence of aortocoronary bypass graft
CPT/HCPCS: 71045; 80048; 80053; 82550; 84484; 85025; 93005; 94150; 96365; 96366; 96375; J1956

== ENCOUNTER 2018-04-24 08:17 | Inpatient (IN) ==
[2018-04-24 08:58] LABS: Baso % (Auto) 0.1 % (0.0-2.0); Eos % (Auto) 0.1 % (0.0-4.0); Hematocrit 37.7 % (39.0-51.0); Hemoglobin 13.1 gm/dL (13.0-17.0); Lymph # (Auto) 0.6 th/mm3 (1.0-4.8); Lymph % (Auto) 10.9 % (9.0-44.0); Mean Corpuscular HGB Conc 34.7 % (32.0-36.0); Mean Corpuscular Hemoglobin 32.3 pg (27.0-34.0); Mean Corpuscular Volume 93.1 fL (80.0-100.0); Mean Platelet Volume 7.7 fL (7.0-11.0); Mono # (Auto) 0.9 th/mm3 (0.0-0.9); Mono % (Auto) 17.2 % (0.0-8.0); Neut # (Auto) 3.9 th/mm3 (1.8-7.7); Neut % (Auto) 71.7 % (16.0-70.0); Platelet Count 186 th/mm3 (150-450); Red Blood Count 4.05 mil/mm3 (4.50-5.90); White Blood Count 5.5 th/mm3 (4.0-11.0)
[2018-04-24] MEDS: dilTIAZem Inj 125 MG in Sodium Chlor 0.9% Inj 100 ML IV.CONT PRN (09:05)
[2018-04-24 09:18] LABS: Alanine Aminotransferase 21 U/L (12-78)
[2018-04-24 09:23] LABS: Alkaline Phosphatase 115 U/L (45-117); Total Protein 8.6 g/dL (6.4-8.2); Troponin I 0.05 ng/mL (0.02-0.05)
--- NOTE | 2018-04-24 09:24 | XR ---
EXAM DATE: 04/24/2018 8:56 AM EDT AGE/SEX: 87 years / Male INDICATIONS: Short of breath, chest pain. CLINICAL DATA: This is the patient's initial encounter. Patient reports that signs and symptoms have been present for 1 day and indicates a pain score of 3/10. MEDICAL/SURGICAL HISTORY: Chronic obstructive pulmonary disease. . 2 stents, pacemaker COMPARISON: [facility], CHEST 1V SINGLE AP, 04/03/2018. . FINDINGS: The chest appears stable. There is no evidence of significant airspace disease or acute congestion. Heart and mediastinal structures are stable. Postsurgical changes from open heart surgery are noted. Cardiac pacemaker appears stable. CONCLUSION: No evidence of acute cardiopulmonary process. Electronically signed by: Jag Husain MD 04/24/2018 9:22 AM EDT
[2018-04-24 09:29] LABS: Anion Gap 14 meq/L (5-15); Blood Urea Nitrogen 30 mg/dL (7-18); Calcium 8.8 mg/dL (8.5-10.1); Carbon Dioxide 18.8 meq/L (21.0-32.0); Chloride 102 meq/L (98-107); Glomerular Filtration Rate 63 mL/min (>89); Glucose,Random 163 mg/dL (74-106); Sodium 135 meq/L (136-145)
[2018-04-24 09:30] LABS: Aspartate Aminotransferase 37 U/L (15-37); Potassium 3.5 meq/L (3.5-5.1)
--- NOTE | 2018-04-24 09:43 | ED ---
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 Also having some shortness of breath. He has a history of CAD, A. fib, recent stents. He is on blood thinners. He called and spoke to the cardiology office referred him to the ED. Symptoms been ongoing since this morning. Overall have been feeling generally well and healthy before that. Symptoms been severe , constant, and unrelieved with home medications. Complete Quality Measures for STEMI Alert Patients Related Data Home Medications Medication Instructions Recorded Confirmed diltiazem HCl 300 mg PO DAILY 04/03/18 04/24/18 ferrous sulfate 325 mg PO DAILY 04/03/18 04/24/18 gemfibrozil 600 mg PO BID 04/03/18 04/24/18 losartan 50 mg PO DAILY 04/03/18 04/24/18 lutein 40 mg PO DAILY 04/03/18 04/24/18 vitamin [id number] acid 1 tab PO DAILY 04/03/18 04/24/18 Previous Rx's Medication Instructions Recorded apixaban [Eliquis] 5 mg PO BID tab 04/04/18 budesonide-formoterol [Symbicort] 2 puff INH BID g 04/04/18 clopidogrel [Plavix] 75 mg PO DAILY #90 tab 04/04/18 isosorbide mononitrate 60 mg PO DAILY tab 04/04/18 metoprolol tartrate 25 mg PO BID tab 04/04/18 Allergies Allergy/AdvReac Type Severity Reaction Status Date / Time No Known Allergies Allergy Verified 04/24/18 08:26 Review of Systems ROS: all other systems reviewed are negative [facility] Medical History Medical History Mitral regurgitation (Acute) HLD (hyperlipidemia) (Acute) CVA (cerebral vascular accident) (Acute) Pacemaker (Acute) Shortness of breath (Acute) Prediabetes (Acute) PAD (peripheral artery disease) (Acute) CHF (congestive heart failure) (Acute) Atrial fibrillation (Acute) Aortic valve stenosis (Acute) Hypertension (Acute) Surgical History Surgical History H/O heart artery stent (Acute) H/O prior ablation treatment (Acute) Social History Social History Substance History: No History of Abuse Second Hand Smoke Exposure: No Smoking Status: Former smoker How Often Do You Have a Drink Containing Alcohol: 2 to 4 times a month Hx Recent Travel: No Recent Travel in [facility] within the Last 8 Weeks: No Recent Out of Country Travel within the Last 8 Weeks: No Immunization History Tetanus Immunization: Unsure Hx Influenza Vaccine This Season: No Exam Narrative Exam Narrative: GENERAL: Well-appearing 87-year-old man, nontoxic. SKIN: Focused skin assessment warm/dry. HEAD: Atraumatic. Normocephalic. EYES: Pupils equal and round. No scleral icterus. No injection or drainage. ENT: No nasal bleeding or discharge. Mucous membranes pink and moist. NECK: Trachea midline. No JVD. CARDIOVASCULAR: Heart rate rapid, good perfusion. RESPIRATORY: No accessory muscle use. Clear to auscultation. Breath sounds equal bilaterally. GASTROINTESTINAL: Abdomen soft, non-tender, nondistended. Hepatic and splenic margins not palpable. MUSCULOSKELETAL: No obvious deformities. No clubbing. No cyanosis. No edema. NEUROLOGICAL: Awake and alert. No obvious cranial nerve deficits. Motor grossly within normal limits. Normal speech. PSYCHIATRIC: Appropriate mood and affect; insight and judgment normal. Course Initial Documented Vital Signs Temperature 97.7 F 04/24/18 08:21 Pulse Rate 155 H 04/24/18 08:21 Respiratory Rate 26 H 04/24/18 08:21 Blood Pressure 114/56 L 04/24/18 08:21 Pulse Oximetry 96 04/24/18 08:21 Last Documented Vital Signs Temperature 97.7 F 04/24/18 08:21 Pulse Rate 74 04/24/18 09:29 Respiratory Rate 16 04/24/18 09:29 Blood Pressure 135/63 04/24/18 09:29 Pulse Oximetry 98 04/24/18 09:29 Medical Decision Making MDM Narrative Medical decision making narrative: 87-year-old man, presents to ED with some chest discomfort and left arm discomfort, found to be in A. fib flutter, with RVR and a rate in the 150s. He also has ischemic changes on his EKG. Cardiology was aware the patient and Dr. Mcclendon came to the bedside with the patient was in the ED. He started on diltiazem drip. He had good response. Rate controlled. Recommend admission to the hospital. Cardiology consult. Reassess. Medical Screen Exam Complete: Yes Emergency Medical Condition: Yes Lab Data Lab results reviewed: Yes I reviewed the patient's lab results. Result diagrams: 04/24/18 08:42 04/24/18 08:42 Lab Results 04/24/18 04/24/18 Range/Units 08:42 08:42 WBC 5.5 (4.0-11.0) th/mm3 RBC 4.05 L (4.50-5.90) mil/mm3 Hgb 13.1 (13.0-17.0) gm/dL Hct 37.7 L (39.0-51.0) % MCV 93.1 (80.0-100.0) fL MCH 32.3 (27.0-34.0) pg MCHC 34.7 (32.0-36.0) % RDW 14.0 (11.6-17.2) % Plt Count 186 (150-450) th/mm3 MPV 7.7 (7.0-11.0) fL Neut % (Auto) 71.7 H (16.0-70.0) % Lymph % (Auto) 10.9 (9.0-44.0) % [place] % (Auto) 17.2 H (0.0-8.0) % Eos % (Auto) 0.1 (0.0-4.0) % Baso % (Auto) 0.1 (0.0-2.0) % Neut # (Auto) 3.9 (1.8-7.7) th/mm3 Lymph # (Auto) 0.6 L (1.0-4.8) th/mm3 [place] # (Auto) 0.9 (0.0-0.9) th/mm3 Eos # (Auto) 0.0 (0.0-0.4) th/mm3 Baso # (Auto) 0.0 (0.0-0.2) th/mm3 WBC Differential . Differential Comment Auto diff final Sodium 135 L (136-145) meq/L Potassium 3.5 (3.5-5.1) meq/L Chloride 102 (98-107) meq/L Carbon Dioxide 18.8 L (21.0-32.0) meq/L Anion Gap 14 (5-15) meq/L BUN 30 H (7-18) mg/dL Creatinine 1.11 (0.60-1.30) mg/dL Estimated GFR 63 L (>89) mL/min Random Glucose 163 H (74-106) mg/dL Calcium 8.8 (8.5-10.1) mg/dL Total Bilirubin 0.8 (0.2-1.0) mg/dL AST 37 (15-37) U/L ALT 21 (12-78) U/L Alkaline Phosphatase 115 (45-117) U/L Troponin I 0.05 (0.02-0.05) ng/mL Total Protein 8.6 H (6.4-8.2) g/dL Albumin 4.0 (3.4-5.0) g/dL Imaging Data Radiologist's impression: Chest X-Ray 04/24/18 08:34 CONCLUSION: No evidence of acute cardiopulmonary process. Negative ECG Data Attestation: I personally reviewed and interpreted this ECG as follows: Interpretation: Initial EKG done at 0829, likely atrial flutter, rate of 154, normal axis, lateral ST depression suggesting ischemia. Repeat EKG at 0929, A. fib with some ventricular pacing, ischemic changes seem to have improved. Discharge Plan Discharge Disposition Patient Disposition: 30 Still Patient Physicians Team ED Provider: Silvino Murillo Primary Care Provider: Do Queta Payne Attending Provider: Lazaro Pearl Other Providers: Sunny Hernández Status ED Status: Admitted Patient
[2018-04-24] MEDS ORDERED: Acetaminophen 325 MG Tablet PO PRN (10:21)
--- NOTE | 2018-04-24 11:32 | ECG ---
Date Performed: 04/24/2018 Time Performed: 09:29:31 PTAGE: 87 years EKG: ELECTRONIC VENTRICULAR PACEMAKER ABNORMAL RHYTHM ECG PREVIOUS TRACING : 04/03/2018 06.48 DOCTOR: Silvino Alvarez Interpretating Date/Time 04/24/2018 11:31:39
--- NOTE | 2018-04-24 11:33 | ECG ---
Date Performed: 04/24/2018 Time Performed: 08:29:54 PTAGE: 87 years EKG: ATRIAL FLUTTER/TACHYCARDIA WITH RAPID VENTRICULAR RESPONSE ST DEVIATION AND MODERATE T-WAVE ABNORMALITY, CONSIDER LATERAL ISCHEMIA ST DEVIATION AND MODERATE T-WAVE ABNORMALITY, CONSIDER INFERI OR ISCHEMIA ABNORMAL ECG NO PREVIOUS TRACING DOCTOR: Silvino Alvarez Interpretating Date/Time 04/24/2018 11:32:33
--- NOTE | 2018-04-24 12:08 | P.HP ---
History of Present Illness Primary Care Physician: Do Queta Payne Chief Complaint: Chest pain History of Present Illness: 87-year-old male with a past medical history of coronary A. fib, CHF, hypertension came to the ED for evaluation of chest discomfort and pain since last night associated with radiation to left upper extremity as well as diaphoresis. Patient described the pain as substernal and state it feels as someone sitting on his chest. Patient states, despite taking Tylenol there was no improvement however denies taking any nitro or aspirin. 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 While in the ED, patient was found to be in A. fib RVR for which she was started on Cardizem drip. He also reported nausea without any emesis prior to arrival to the ED. During my exam, patient reported an improvement of chest pain. - Diagnosis (1) Atrial fibrillation with RVR Inpatient Certification: I certify that the inpatient services were ordered in accordance with Medicare regulations governing the order. This includes certification that hospital inpatient services are reasonable and necessary and in the case of services not specified as inpatient-only under 42 CFR 419.22(n), that they are appropriately provided as inpatient services in accordance to with the 2-midnight benchmark under 43 CFR 412.3(e) Estimated Total Length of Stay (Days): 2 Plans for Post Hospital Care: Not yet determined Review of Systems All other systems reviewed negative except as stated in HPI [facility] - History History Provided By: Patient - Medical History Medical History: Medical History (Last Reviewed 04/24/18 @ 09:41 by Silvino Murillo MD) Mitral regurgitation (Acute) HLD (hyperlipidemia) (Acute) CVA (cerebral vascular accident) (Acute) Pacemaker (Acute) Shortness of breath (Acute) Prediabetes (Acute) PAD (peripheral artery disease) (Acute) CHF (congestive heart failure) (Acute) Atrial fibrillation (Acute) Aortic valve stenosis (Acute) Hypertension (Acute) - Surgical History Surgical History: Surgical History (Last Reviewed 04/24/18 @ 09:41 by Silvino Murillo MD) H/O heart artery stent H/O prior ablation treatment - Family History Family History: Family History (Last Updated 04/24/18 @ 12:04 by Lazaro Pearl MD) Other Family history of cancer - Tobacco History Second Hand Smoke Exposure: No Smoking Status: Former smoker - Alcohol History How Often Do You Have a Drink Containing Alcohol: 2 to 4 times a month - Substance Use History Substance History: No History of Abuse - Travel History History of Recent Travel: No Recent Travel in the [place] Within the Last 8 Weeks: No Recent Travel Out of the Country Within the Last 8 Weeks: No - Immunization History Tetanus Immunization: Unsure Hx Influenza Vaccine This Season: No Medications and Allergies Active Medications: Active Medications Acetaminophen (Tylenol) 650 mg PO Q4H PRN PRN Reason: Temp > 100.4 Al Hydroxide/Mg Hydroxide (Milk Of Sol Lichio) 30 ml PO Q12H PRN PRN Reason: Mild Constipation Apixaban (Eliquis) 5 mg PO BID [facility] Last Admin: 04/24/18 11:03 Dose: 5 mg Clopidogrel Bisulfate (Plavix) 75 mg PO DAILY [facility] Last Admin: 04/24/18 11:04 Dose: 75 mg Diltiazem HCl 125 mg/ Sodium (Chloride) 125 mls @ 5 mls/hr IV.CONT TITRATE PRN ; Protocol PRN Reason: Per Protocol Last Admin: 04/24/18 09:05 Dose: 5 mg/hr, 5 mls/hr Ondansetron HCl (Zofran Inj) 4 mg IV.PUSH Q6H PRN PRN Reason: NAUSEA OR VOMITING Sodium Chloride (Ns Flush) 2 ml IV.FLUSH UNSCH PRN PRN Reason: FLUSH AFTER USING IV ACCESS Allergies Allergy/AdvReac Type Severity Reaction Status Date / Time No Known Allergies Allergy Verified 04/24/18 08:26 Home Medications Medication Instructions Recorded Confirmed Type diltiazem HCl 300 mg PO DAILY 04/03/18 04/24/18 History ferrous sulfate 325 mg PO DAILY 04/03/18 04/24/18 History gemfibrozil 600 mg PO BID 04/03/18 04/24/18 History losartan 50 mg PO DAILY 04/03/18 04/24/18 History lutein 40 mg PO DAILY 04/03/18 04/24/18 History vitamin [id number] acid 1 tab PO DAILY 04/03/18 04/24/18 History Exam Vital signs: Vital Signs 04/24/18 08:21 04/24/18 08:34 04/24/18 09:29 Temperature 97.7 F Pulse Rate 155 H 74 Respiratory Rate 26 H 16 Blood Pressure 114/56 L 135/63 Pulse Oximetry 96 97 98 04/24/18 11:58 Temperature Pulse Rate 76 Respiratory Rate 18 Blood Pressure 151/77 H Pulse Oximetry Intake & Output 04/23/18 04/24/18 04/24/18 18:59 06:59 18:59 Weight 69.853 kg Narrative: GENERAL: NAD SKIN: Warm and dry. HEAD: Atraumatic. Normocephalic. EYES: Pupils equal and round. No scleral icterus. No injection or drainage. ENT: No nasal bleeding or discharge. Mucous membranes pink and moist. NECK: Trachea midline. No JVD. CARDIOVASCULAR: Regular rate and rhythm. III/ aortic murmur RESPIRATORY: No accessory muscle use. Clear to auscultation. Breath sounds equal bilaterally. GASTROINTESTINAL: Abdomen soft, non-tender, nondistended. Hepatic and splenic margins not palpable. MUSCULOSKELETAL: Extremities without clubbing, cyanosis, or edema. No obvious deformities. NEUROLOGICAL: Awake and alert. No obvious cranial nerve deficits. Motor grossly within normal limits. Five out of 5 muscle strength in the arms and legs. Normal speech. PSYCHIATRIC: Appropriate mood and affect; insight and judgment normal. Results - Labs CBC & Chem 7: 04/24/18 08:42 04/24/18 08:42 Labs: Laboratory Results - last 24 hr 04/24/18 04/24/18 08:42 08:42 WBC 5.5 RBC 4.05 L Hgb 13.1 Hct 37.7 L MCV 93.1 MCH 32.3 MCHC 34.7 RDW 14.0 Plt Count 186 MPV 7.7 Neut % (Auto) 71.7 H Lymph % (Auto) 10.9 [place] % (Auto) 17.2 H Eos % (Auto) 0.1 Baso % (Auto) 0.1 Neut # (Auto) 3.9 Lymph # (Auto) 0.6 L [place] # (Auto) 0.9 Eos # (Auto) 0.0 Baso # (Auto) 0.0 WBC Differential . Differential Comment Auto diff final Sodium 135 L Potassium 3.5 Chloride 102 Carbon Dioxide 18.8 L Anion Gap 14 BUN 30 H Creatinine 1.11 Estimated GFR 63 L Random Glucose 163 H Calcium 8.8 Total Bilirubin 0.8 AST 37 ALT 21 Alkaline Phosphatase 115 Troponin I 0.05 Total Protein 8.6 H Albumin 4.0 - Imaging Impressions Chest X-Ray 04/24/18 08:34 CONCLUSION: No evidence of acute cardiopulmonary process. Caprini VTE Risk Assessment Caprini VTE Risk Assessment: Moderate/High Risk (score >= 2) Caprini Risk Assessment Model: Point Value = 1 Point Value = 2 Point Value = 3 Point Value = 5 Age 41-60 Minor surgery BMI > 25 kg/m2 Swollen legs Varicose veins or History of unexplained or recurrent spontaneous Oral contraceptives or hormone replacement Sepsis (< 1 month) Serious lung disease, including pneumonia (< 1 month) Abnormal pulmonary function Acute myocardial infarction Congestive heart failure (< 1 month) History of inflammatory bowel disease Medical patient at bed rest Age 61-74 Arthroscopic surgery Major open surgery (> 45 min) Laparoscopic surgery (> 45 min) Malignancy Confined to bed (> 72 hours) Immobilizing plaster cast Central venous access Age >= 75 History of VTE Family history of VTE Factor V Leiden Prothrombin [id number] Lupus anticoagulant Anticardiolipin antibodies Elevated serum homocysteine Heparin-induced thrombocytopenia Other congenital or acquired thrombophilia Stroke (< 1 month) Elective arthroplasty Hip, pelvis, or leg fracture Acute spinal cord injury (< 1 month) Prophylaxis Regimen: Total Risk Factor Score Risk Level Prophylaxis Regimen 0-1 Low Early ambulation 2 Moderate Order ONE of the following: *Sequential Compression Device (SCD) *Heparin 5000 units SQ BID 3-4 Higher Order ONE of the following medications: *Heparin 5000 units SQ TID *Enoxaparin/Lovenox 40 mg SQ daily (WT < 150 kg, CrCl > 30 mL/min) *Enoxaparin/Lovenox 30 mg SQ daily (WT < 150 kg, CrCl > 10-29 mL/min) *Enoxaparin/Lovenox 30 mg SQ BID (WT < 150 kg, CrCl > 30 mL/min) AND/OR *Sequential Compression Device (SCD) 5 or more Highest Order ONE of the following medications: *Heparin 5000 units SQ TID (Preferred with Epidurals) *Enoxaparin/Lovenox 40 mg SQ daily (WT < 150 kg, CrCl > 30 mL/min) *Enoxaparin/Lovenox 30 mg SQ daily (WT < 150 kg, CrCl > 10-29 mL/min) *Enoxaparin/Lovenox 30 mg SQ BID (WT < 150 kg, CrCl > 30 mL/min) AND *Sequential Compression Device (SCD) Assessment and Plan - Assessment (1) Atrial fibrillation with RVR Code(s): I48.91 - Unspecified atrial fibrillation Status: Acute - Plan 87-year-old man with Atrial fibrillation with RVR Currently on Cardizem drip pending further evaluation from cardiology Resume Eliquis Continue with ACS ruled out per protocol with serial cardiac enzyme and EKGs Check 2D echo Atypical chest pain Chest x-ray noted and reviewed by me without any cardiopulmonary disease Initial cardiac enzyme unremarkable, continue with ACS ruled out per protocol with serial cardiac enzyme and EKGs Cardiology consultation pending CAD/s/p PPM Resume Plavix Hyperlipidemia Resume gemfibrozil and check lipid profile Hyperglycemia No known h/o DM, check Hga1C and treat accordingly DVT prophylaxis: Eliquis
[2018-04-24 16:03] LABS: Troponin I 0.28 ng/mL (0.02-0.05)
[2018-04-24] MEDS ORDERED: Metoprolol Tartrate 25 MG Tablet PO SCH (21:00)
[2018-04-24] MEDS: Gemfibrozil 600 MG Tablet PO SCH (21:29)
[2018-04-24] MEDS: Budesonide-Formoterol 160/4.5 MCG 6 GM Inhaler INH SCH (21:29)
[2018-04-25] MEDS ORDERED: Isosorbide Mononitrate 60 MG ER 24HR Tablet (Imdur) PO SCH (07:00)
[2018-04-25 07:04] LABS: Baso % (Auto) 0.3 % (0.0-2.0); Eos # (Auto) 0.1 th/mm3 (0.0-0.4); Eos % (Auto) 1.4 % (0.0-4.0); Hematocrit 32.8 % (39.0-51.0); Hemoglobin 11.7 gm/dL (13.0-17.0); Lymph # (Auto) 1.3 th/mm3 (1.0-4.8); Mean Corpuscular HGB Conc 35.7 % (32.0-36.0); Mean Corpuscular Hemoglobin 32.2 pg (27.0-34.0); Mean Corpuscular Volume 90.1 fL (80.0-100.0); Mean Platelet Volume 8.1 fL (7.0-11.0); Mono # (Auto) 0.7 th/mm3 (0.0-0.9); Mono % (Auto) 14.8 % (0.0-8.0); Neut # (Auto) 2.5 th/mm3 (1.8-7.7); Neut % (Auto) 55.5 % (16.0-70.0); Platelet Count 175 th/mm3 (150-450); Red Blood Count 3.64 mil/mm3 (4.50-5.90); Red Cell Distribution Width 13.5 % (11.6-17.2); White Blood Count 4.5 th/mm3 (4.0-11.0)
[2018-04-25 07:22] LABS: Alanine Aminotransferase 23 U/L (12-78); Albumin 3.4 g/dL (3.4-5.0); Alkaline Phosphatase 100 U/L (45-117); Anion Gap 11 meq/L (5-15); Aspartate Aminotransferase 27 U/L (15-37); Blood Urea Nitrogen 18 mg/dL (7-18); Calcium 8.3 mg/dL (8.5-10.1); Carbon Dioxide 23.9 meq/L (21.0-32.0); Chloride 108 meq/L (98-107); Glomerular Filtration Rate Greater Than 89 mL/min (>89); Glucose,Random 98 mg/dL (74-106); Sodium 143 meq/L (136-145); Total Protein 7.4 g/dL (6.4-8.2)
--- NOTE | 2018-04-25 07:27 | P.CONCA ---
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 He also has a history of sick sinus syndrome s/p PPM implantation. He presented to the ER with complaints of palpations and chest pain which began last night. He was in atrial flutter with a HR in the 150s. He was given IV diltiazem and his HR has improved. Currently he is comfortable and chest pain free. Review of Systems All other systems reviewed negative except as stated in HPI [facility] - History History Provided By: Patient - Medical History Medical History: Medical History (Last Reviewed 04/24/18 @ 09:41 by Silvino Murillo MD) Mitral regurgitation (Acute) HLD (hyperlipidemia) (Acute) CVA (cerebral vascular accident) (Acute) Pacemaker (Acute) Shortness of breath (Acute) Prediabetes (Acute) PAD (peripheral artery disease) (Acute) CHF (congestive heart failure) (Acute) Atrial fibrillation (Acute) Aortic valve stenosis (Acute) Hypertension (Acute) - Surgical History Surgical History: Surgical History (Last Reviewed 04/24/18 @ 09:41 by Silvino Murillo MD) H/O heart artery stent H/O prior ablation treatment - Family History Family History: Family History (Last Updated 04/24/18 @ 12:04 by Lazaro Pearl MD) Other Family history of cancer - Tobacco History Second Hand Smoke Exposure: No Smoking Status: Former smoker - Alcohol History How Often Do You Have a Drink Containing Alcohol: 2 to 4 times a month - Substance Use History Substance History: No History of Abuse - Travel History History of Recent Travel: No Recent Travel in the [place] Within the Last 8 Weeks: No Recent Travel Out of the Country Within the Last 8 Weeks: No - Immunization History Tetanus Immunization: Unsure Hx Influenza Vaccine This Season: No Medications and Allergies Active Medications: Active Medications Acetaminophen (Tylenol) 650 mg PO Q4H PRN PRN Reason: Temp > 100.4 Al Hydroxide/Mg Hydroxide (Milk Of Magnsuellen Liq) 30 ml PO Q12H PRN PRN Reason: Mild Constipation Apixaban (Eliquis) 5 mg PO BID [facility] Last Admin: 04/24/18 21:28 Dose: 5 mg Budesonide/Formoterol Fumarate (Symbicort 160/4.5 Mcg Inh) 2 puff INH BID [facility] Last Admin: 04/24/18 21:29 Dose: 2 puff Clopidogrel Bisulfate (Plavix) 75 mg PO DAILY [facility] Last Admin: 04/24/18 11:04 Dose: 75 mg Ferrous Sulfate (Ferosul) 325 mg PO DAILY [facility] Gemfibrozil (Lopid) 600 mg PO BID [facility] Last Admin: 04/24/18 21:29 Dose: 600 mg Diltiazem HCl 125 mg/ Sodium (Chloride) 125 mls @ 5 mls/hr IV.CONT TITRATE PRN ; Protocol PRN Reason: Per Protocol Last Admin: 04/24/18 09:05 Dose: 5 mg/hr, 5 mls/hr Isosorbide Mononitrate (Imdur) 60 mg PO DAILY@0700 [facility] Last Admin: 04/25/18 06:50 Dose: 60 mg Metoprolol Tartrate (Lopressor) 50 mg PO BID [facility] Ondansetron HCl (Zofran Inj) 4 mg IV.PUSH Q6H PRN PRN Reason: NAUSEA OR VOMITING Sodium Chloride (Ns Flush) 2 ml IV.FLUSH UNSCH PRN PRN Reason: FLUSH AFTER USING IV ACCESS Allergies Allergy/AdvReac Type Severity Reaction Status Date / Time No Known Allergies Allergy Verified 04/24/18 08:26 Home Medications Medication Instructions Recorded Confirmed Type diltiazem HCl 300 mg PO DAILY 04/03/18 04/24/18 History ferrous sulfate 325 mg PO DAILY 04/03/18 04/24/18 History gemfibrozil 600 mg PO BID 04/03/18 04/24/18 History losartan 50 mg PO DAILY 04/03/18 04/24/18 History lutein 40 mg PO DAILY 04/03/18 04/24/18 History vitamin [id number] acid 1 tab PO DAILY 04/03/18 04/24/18 History Exam Vital signs: Vital Signs 04/24/18 08:21 04/24/18 08:34 04/24/18 09:29 Temperature 97.7 F Pulse Rate 155 H 74 Respiratory Rate 26 H 16 Blood Pressure 114/56 L 135/63 Pulse Oximetry 96 97 98 04/24/18 11:58 04/24/18 12:26 04/24/18 13:00 Temperature 98.0 F Pulse Rate 76 81 84 Respiratory Rate 18 18 Blood Pressure 151/77 H 129/76 Pulse Oximetry 96 04/24/18 14:00 04/24/18 15:00 04/24/18 16:00 Temperature 97.3 F L Pulse Rate 81 77 93 H Respiratory Rate 18 Blood Pressure 110/65 Pulse Oximetry 98 04/24/18 17:00 04/24/18 18:00 04/24/18 19:00 Temperature Pulse Rate 80 77 76 Respiratory Rate Blood Pressure Pulse Oximetry 04/24/18 20:00 04/24/18 21:00 04/24/18 22:00 Temperature 97.6 F Pulse Rate 104 H 78 90 Respiratory Rate 16 Blood Pressure 129/68 Pulse Oximetry 97 04/24/18 23:00 04/25/18 00:00 04/25/18 01:00 Temperature 97.6 F Pulse Rate 74 76 74 Respiratory Rate 16 Blood Pressure 125/59 L Pulse Oximetry 97 04/25/18 02:00 04/25/18 03:00 04/25/18 04:00 Temperature 97.6 F Pulse Rate 82 76 76 Respiratory Rate 16 Blood Pressure 155/67 H Pulse Oximetry 97 04/25/18 05:00 04/25/18 06:00 Temperature Pulse Rate 78 106 H Respiratory Rate Blood Pressure Pulse Oximetry Intake & Output 04/24/18 04/25/18 04/25/18 18:59 06:59 18:59 Intake Total 480 / 480 480 / 480 Output Total 800 / 800 400 / 400 Balance -320 / -320 80 / 80 Weight 69.853 kg 69 kg Intake: Oral 480 / 480 480 / 480 Output: Urine 800 / 800 400 / 400 Other: Date of Last Bowel Movement 04/25/18 # Incontinent Bowel Movements 1 - Constitutional no acute distress - Routine HEENT Exam Head: Present: normocephalic Eye: Present: EOMI, PERRL ENT: Present: mucous membranes moist - Routine Neck Exam Present: supple. Absent: JVD - Routine Chest/Breast/Axilla Exam Chest wall: Absent: tenderness - Routine Respiratory Exam Present: CTA bilaterally - Routine Cardiovascular Exam Present: S1, S2, irregular rhythm - Routine Abdominal Exam Present: soft, normoactive bowel sounds - Routine Neurological Exam Present: alert, oriented X3 - Routine Psychiatric Exam Present: normal affect Results 04/25/18 05:47 04/25/18 05:47 Cardiac Enzymes 04/24/18 04/24/18 04/25/18 Range/Units 08:42 15:20 05:47 AST 37 27 (15-37) U/L Troponin I 0.05 0.28 H (0.02-0.05) ng/mL CBC 04/24/18 04/25/18 Range/Units 08:42 05:47 WBC 5.5 4.5 (4.0-11.0) th/mm3 RBC 4.05 L 3.64 L (4.50-5.90) mil/mm3 Hgb 13.1 11.7 L (13.0-17.0) gm/dL Hct 37.7 L 32.8 L (39.0-51.0) % Plt Count 186 175 (150-450) th/mm3 Neut # (Auto) 3.9 2.5 (1.8-7.7) th/mm3 Lymph # (Auto) 0.6 L 1.3 (1.0-4.8) th/mm3 [place] # (Auto) 0.9 0.7 (0.0-0.9) th/mm3 Eos # (Auto) 0.0 0.1 (0.0-0.4) th/mm3 Baso # (Auto) 0.0 0.0 (0.0-0.2) th/mm3 Comprehensive Metabolic Panel 04/24/18 04/25/18 Range/Units 08:42 05:47 Sodium 135 L 143 (136-145) meq/L Potassium 3.5 3.0 L (3.5-5.1) meq/L Chloride 102 108 H (98-107) meq/L Carbon Dioxide 18.8 L 23.9 (21.0-32.0) meq/L BUN 30 H 18 (7-18) mg/dL Creatinine 1.11 0.70 (0.60-1.30) mg/dL Calcium 8.8 8.3 L (8.5-10.1) mg/dL AST 37 27 (15-37) U/L ALT 21 23 (12-78) U/L Alkaline Phosphatase 115 100 (45-117) U/L Total Protein 8.6 H 7.4 D (6.4-8.2) g/dL Albumin 4.0 3.4 D (3.4-5.0) g/dL Intake and Output 04/24/18 04/25/18 04/25/18 22:59 06:59 14:59 Intake Total 480 / 480 480 / 480 Output Total 800 / 800 400 / 400 Balance -320 / -320 80 / 80 Intake: Oral 480 / 480 480 / 480 Output: Urine 800 / 800 400 / 400 Other: Date of Last Bowel Movement 04/25/18 # Incontinent Bowel Movements 1 Weight 69 kg EKG interpretations - Dysrhythmias Supraventricular dysrhythmia: atrial flutter Assessment and Plan - Plan Atrial Flutter Hx of Sick Sinus s/p Biotronik PPM 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 He will continue Plavix and Eliquis (given history of GI bleed). Troponin is mildly elevated and is likely due to demand rather than epicardial thrombosis. Will continue to monitor.
--- NOTE | 2018-04-25 07:56 | ECHRPT ---
Indication: A FIB FLUTTER CONCLUSIONS Upper normal left ventricular size. Mild concentric left ventricular hypertrophy. Left ventricular systolic function is normal with an estimated ejection fraction of 55%. No regional wall motion abnormalities are present. The left atrial size is moderately dilated. The right atrial size is mildly dilated. Mild mitral annular calcification is present. Mild mitral valve regurgitation. There is trace tricuspid valve regurgitation. The estimated pulmonary arterial pressure is 60 mmHg. Bovine aortic valve prosthesis which is moderately calcified. Severe aortic valve stenosis. Aortic valve mean gradient is 40 mmHg. Trace to mild aortic insufficiency. BP: / HR: Rhythm: MEASUREMENTS (Male / Female) Normal Values Technical Quality: 2D ECHO LV Diastolic Diameter PLAX 5.5 cm 4.2 - 5.9 / 3.9 - 5.3 cm LV Systolic Diameter PLAX 3.4 cm IVS Diastolic Thickness 0.8 cm 0.6 - 1.0 / 0.6 - 0.9 cm LVPW Diastolic Thickness 1.0 cm 0.6 - 1.0 / 0.6 - 0.9 cm LV Relative Wall Thickness 0.3 RV Internal Dim ED PLAX 2.2 cm LVOT Diameter 1.5 cm Aortic Root Diameter 3.2 cm LA Systolic Diameter LX 5.4 cm 3.0 - 4.0 / 2.7 - 3.8 cm LV Ejection Fraction MOD 4C 55.1 % LV Ejection Fraction 4C AL 54.0 % M-MODE Aortic Root Diameter MM 3.6 cm LA Systolic Diameter MM 4.5 cm LA Ao Ratio MM 1.3 AV Cusp Separation MM 1.3 cm DOPPLER AV Peak Velocity 394.0 cm/s AV Peak Gradient 62.1 mmHg AV Mean Gradient 37.7 mmHg AV Velocity Time Integral 84.4 cm AI Peak Velocity 295.0 cm/s AI Peak Gradient 34.8 mmHg AI Pressure Half Time 312.0 ms LVOT Peak Velocity 107.0 cm/s LVOT Peak Gradient 4.6 mmHg LVOT Velocity Time Integral 23.2 cm AV Area Cont Eq vti 0.5 cm AV Area Cont Eq pk 0.5 cm Mitral E Point Velocity 137.0 cm/s LV E' Lateral Velocity 5.9 cm/s Mitral E to LV E' Lateral Ratio 23.3 LV E' Septal Velocity 4.7 cm/s Mitral E to LV E' Septal Ratio 29.1 TV Peak Velocity 346.0 cm/s TR Peak Velocity 353.0 cm/s TR Peak Gradient 49.8 mmHg Right Atrial Pressure 10.0 mmHg Pulmonary Artery Systolic Pressu 59.8 mmHg Right Ventricular Systolic Press 59.8 mmHg PV Peak Velocity 107.0 cm/s PV Peak Gradient 4.6 mmHg FINDINGS LEFT VENTRICLE Upper normal left ventricular size. Mild concentric left ventricular hypertrophy. The left ventricular systolic function is normal with an estimated ejection fraction of 55%. No joyce onal wall motion abnormalities are present. RIGHT VENTRICLE Normal right ventricular size and systolic function. LEFT ATRIUM The left atrial size is moderately dilated. RIGHT ATRIUM The right atrial size is mildly dilated. ATRIAL SEPTUM Normal atrial septal thickness without atrial level shunting by limited color doppler interrogation. AORTA The aortic root and proximal ascending aorta are normal in size on limited imaging. MITRAL VALVE Mild mitral annular calcification is present. Mild mitral valve regurgitation. AORTIC VALVE Bovine aortic valve prosthesis which is moderately calcified.Severe aortic valve stenosis. Aortic valve mean gradient is 40 mmHg. Trace to mild aortic insufficiency. TRICUSPID VALVE There is trace tricuspid valve regurgitation. The estimated pulmonary arterial pressure is 60 mmHg. PULMONARY VALVE Trivial pulmonary valve regurgitation. VESSELS The inferior vena cava is normal in size. PERICARDIUM No pericardial effusion. Sunny Hernández MD (Electronically Signed) Final Date:25 April 2018 07:56
[2018-04-25 08:43] VITALS: O2SAT 97
[2018-04-25] MEDS: dilTIAZem Inj 125 MG in Sodium Chlor 0.9% Inj 100 ML IV.CONT PRN (08:48)
--- NOTE | 2018-04-25 08:49 | P.PNCA ---
Subjective Interval history: Chest pain improving. His HR was better controlled however when his diltiazem was discontinued, he went into afib at a faster HR. Physical Exam Vital signs: Vital Signs 04/24/18 09:29 04/24/18 11:58 04/24/18 12:26 Temperature 98.0 F Pulse Rate 74 76 81 Respiratory Rate 16 18 18 Blood Pressure 135/63 151/77 H 129/76 Pulse Oximetry 98 96 04/24/18 13:00 04/24/18 14:00 04/24/18 15:00 Temperature Pulse Rate 84 81 77 Respiratory Rate Blood Pressure Pulse Oximetry 04/24/18 16:00 04/24/18 17:00 04/24/18 18:00 Temperature 97.3 F L Pulse Rate 93 H 80 77 Respiratory Rate 18 Blood Pressure 110/65 Pulse Oximetry 98 04/24/18 19:00 04/24/18 20:00 04/24/18 21:00 Temperature 97.6 F Pulse Rate 76 104 H 78 Respiratory Rate 16 Blood Pressure 129/68 Pulse Oximetry 97 04/24/18 22:00 04/24/18 23:00 04/25/18 00:00 Temperature 97.6 F Pulse Rate 90 74 76 Respiratory Rate 16 Blood Pressure 125/59 L Pulse Oximetry 97 04/25/18 01:00 04/25/18 02:00 04/25/18 03:00 Temperature Pulse Rate 74 82 76 Respiratory Rate Blood Pressure Pulse Oximetry 04/25/18 04:00 04/25/18 05:00 04/25/18 06:00 Temperature 97.6 F Pulse Rate 76 78 106 H Respiratory Rate 16 Blood Pressure 155/67 H Pulse Oximetry 97 04/25/18 08:00 Temperature 98.0 F Pulse Rate 116 H Respiratory Rate 16 Blood Pressure 118/71 Pulse Oximetry 97 Intake & Output 04/24/18 04/25/18 04/25/18 18:59 06:59 18:59 Intake Total 480 / 480 480 / 480 Output Total 800 / 800 400 / 400 Balance -320 / -320 80 / 80 Weight 69.853 kg 69 kg Intake: Oral 480 / 480 480 / 480 Output: Urine 800 / 800 400 / 400 Other: Date of Last Bowel Movement 04/25/18 # Incontinent Bowel Movements 1 - Constitutional no acute distress - Routine HEENT Exam Head: Present: normocephalic Eye: Present: EOMI ENT: Present: mucous membranes moist - Routine Neck Exam Absent: JVD - Routine Respiratory Exam Present: CTA bilaterally - Routine Cardiovascular Exam Present: S1, S2, irregular rhythm - Routine Abdominal Exam Present: soft, normoactive bowel sounds - Routine Extremities Exam Absent: edema - Routine Neurological Exam Present: alert, oriented X3 Assessment and Plan - Plan Atrial Flutter/Atrial fibrillation, with history of prior ablation Hx of Sick Sinus s/p Biotronik PPM 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 Plan for TAVR next Sunday. Continue Plavix (will have the patient add ASA) while his Eliquis is held for his procedure. He will hold his Eliquis starting (04/26) and start ASA 81mg (04/26).
[2018-04-25] MEDS: Gemfibrozil 600 MG Tablet PO SCH (08:53)
[2018-04-25] MEDS ORDERED: Ferrous Sulfate 325 MG Tablet PO SCH (09:00)
[2018-04-25] MEDS ORDERED: Metoprolol Tartrate 50 MG Tablet PO SCH (09:00)
[2018-04-25] MEDS ORDERED: dilTIAZem CD 300 MG Capsule PO SCH (09:00)
[2018-04-25] MEDS: Budesonide-Formoterol 160/4.5 MCG 6 GM Inhaler INH SCH (10:21)
[2018-04-25] MEDS: Potassium Chlor 10 mEq Premix 10 MEQ/100 ML PIGGYBACK IV.SIG SCH ×4 (12:59→16:26)
--- NOTE | 2018-04-25 13:11 | P.PN ---
Subjective Interval history: Follow up for chest discomfort. Denies any CP, SOB, fever, chills. Sitting in his chair. Inquires about going home. Cardiology evaluated patient and okay for patient to go home with plans to do TAVR on next Sun. Physical Exam Vital signs: Vital Signs 04/24/18 14:00 04/24/18 15:00 04/24/18 16:00 Temperature 97.3 F L Pulse Rate 81 77 93 H Respiratory Rate 18 Blood Pressure 110/65 Pulse Oximetry 98 04/24/18 17:00 04/24/18 18:00 04/24/18 19:00 Temperature Pulse Rate 80 77 76 Respiratory Rate Blood Pressure Pulse Oximetry 04/24/18 20:00 04/24/18 21:00 04/24/18 22:00 Temperature 97.6 F Pulse Rate 104 H 78 90 Respiratory Rate 16 Blood Pressure 129/68 Pulse Oximetry 97 04/24/18 23:00 04/25/18 00:00 04/25/18 01:00 Temperature 97.6 F Pulse Rate 74 76 74 Respiratory Rate 16 Blood Pressure 125/59 L Pulse Oximetry 97 04/25/18 02:00 04/25/18 03:00 04/25/18 04:00 Temperature 97.6 F Pulse Rate 82 76 76 Respiratory Rate 16 Blood Pressure 155/67 H Pulse Oximetry 97 04/25/18 05:00 04/25/18 06:00 04/25/18 08:00 Temperature 98.0 F Pulse Rate 78 106 H 116 H Respiratory Rate 16 Blood Pressure 118/71 Pulse Oximetry 97 04/25/18 09:00 04/25/18 10:00 04/25/18 11:00 Temperature Pulse Rate 111 H 82 64 Respiratory Rate Blood Pressure Pulse Oximetry Intake & Output 04/24/18 04/25/18 04/25/18 18:59 06:59 18:59 Intake Total 480 / 480 480 / 480 125 / 125 Output Total 800 / 800 400 / 400 Balance -320 / -320 80 / 80 125 / 125 Weight 69.853 kg 69 kg Intake: IV 125 / 125 Cardizem Inj 125 MG In NS Inj 125 / 125 100 ML @ 5 MG/HR 5 mls/hr IV. CONT TITRATE PRN Rx#:[id number] Oral 480 / 480 480 / 480 Output: Urine 800 / 800 400 / 400 Other: Date of Last Bowel Movement 04/25/18 # Incontinent Bowel Movements 1 Narrative: GENERAL: Alert, NAD SKIN: Warm and dry. HEAD: Normocephalic. EYES: No scleral icterus. No injection or drainage. NECK: Supple, trachea midline. No JVD or lymphadenopathy. CARDIOVASCULAR: Regular rate and rhythm, gallops, or rubs. There is 3/6 systolic murmur present. RESPIRATORY: Breath sounds equal bilaterally. No accessory muscle use. GASTROINTESTINAL: Abdomen soft, non-tender, nondistended. MUSCULOSKELETAL: No cyanosis, or edema. BACK: Nontender without obvious deformity. No CVA tenderness. Results - Labs CBC & Chem 7: 04/25/18 05:47 04/25/18 05:47 Laboratory Results - last 24 hr 04/24/18 04/24/18 04/25/18 08:42 15:20 05:47 WBC 4.5 RBC 3.64 L Hgb 11.7 L Hct 32.8 L MCV 90.1 MCH 32.2 MCHC 35.7 RDW 13.5 Plt Count 175 MPV 8.1 Neut % (Auto) 55.5 Lymph % (Auto) 28.0 Seminole % (Auto) 14.8 H Eos % (Auto) 1.4 Baso % (Auto) 0.3 Neut # (Auto) 2.5 Lymph # (Auto) 1.3 [place]in[place] # (Auto) 0.7 Eos # (Auto) 0.1 Baso # (Auto) 0.0 WBC Differential . Differential Comment Auto diff final Sodium Potassium Chloride Carbon Dioxide Anion Gap BUN Creatinine Estimated GFR Random Glucose Calcium Magnesium 2.0 Total Bilirubin AST ALT Alkaline Phosphatase Total Creatine Kinase 61 Troponin I 0.28 H Total Protein Albumin 04/25/18 05:47 WBC RBC Hgb Hct MCV MCH MCHC RDW Plt Count MPV Neut % (Auto) Lymph % (Auto) [place] % (Auto) Eos % (Auto) Baso % (Auto) Neut # (Auto) Lymph # (Auto) [place] # (Auto) Eos # (Auto) Baso # (Auto) WBC Differential Differential Comment Sodium 143 Potassium 3.0 L Chloride 108 H Carbon Dioxide 23.9 Anion Gap 11 BUN 18 Creatinine 0.70 Estimated GFR Greater than 89 Random Glucose 98 Calcium 8.3 L Magnesium Total Bilirubin 0.5 AST 27 ALT 23 Alkaline Phosphatase 100 Total Creatine Kinase Troponin I Total Protein 7.4 D Albumin 3.4 D Assessment and Plan - Assessment (1) Atrial fibrillation with RVR Code(s): I48.91 - Unspecified atrial fibrillation Status: Acute - Plan 87-year-old male with a past medical history of coronary A. fib, CHF, hypertension came to the ED for evaluation of chest discomfort and pain since last night associated with radiation to left upper extremity as well as diaphoresis. Patient was evaluated by Cardiology. Atrial flutter Atrial fibrillation Aortic stenosis - Metoprolol increased to 50mg BID, Continue Cardizem 300mg Qday - STOP Apixaban on 04/26. Continue Plavix. Start Aspirin 81mg Qday on 04/26 - TAVR on Sunday next week Hx of CAD s/p CABG with VERDE-LAD and hx of 2 recent stents to the circumflex Chest pain - thought to be related supply/demand Full code. Ambulation Discharge patient to home Condition on discharge: Improved Heart healthy Diet as tolerated Ad Carmen activity Rx Changes: Metoprolol 50mg BID Aspirin 81mg Qday (Start on 04/26/2018) STOP Apixaban on 04/26/2018 Follow-up with primary care physician with 1-2 weeks.
[2018-04-25 14:07] VITALS: BP 113/65; RESP 18; TEMP 98.4
[2018-04-25 16:25] VITALS: PULSE 87
[2018-04-25 16:47] LABS: Hemoglobin A1c 5.8 % (4.3-6.0)
== END 2018-04-25 17:27 | disposition home or self-care (01) ==
LOC: NEPE 08:17 → NEDA 09:58 → HCIS 11:44
PROVIDERS: ADMIT Hospitalist; ATTEND Hospitalist

== ENCOUNTER 2018-05-01 09:10 | Inpatient (IN) ==
[2018-05-01] MEDS ORDERED: Chlorhexidine Gluconate 2% 1 Pack (2 Cloths) TOPICAL SCH ×2 (10:15)
[2018-05-01] MEDS ORDERED: Sod Chloride 0.9% Inj 1,000 ML IV.CONT SCH (10:15)
[2018-05-01] MEDS ORDERED: Mupirocin 2% Nasal Oint Topical Syringe EACH NARE SCH ×2 (10:15)
[2018-05-01] MEDS ORDERED: Aspirin 325 MG Tablet PO SCH ×2 (10:15)
[2018-05-01] MEDS ORDERED: Midazolam Inj 5 MG/ML 1 ML Vial ONE (10:23)
[2018-05-01] MEDS ORDERED: Lidocaine 1% Inj 50 ML Vial ONE (10:51)
[2018-05-01] MEDS ORDERED: ceFAZolin Inj 2,000 MG in Sodium Chlor 0.9% Inj 100 ML IV.SIG SCH (11:00)
[2018-05-01] MEDS ORDERED: ceFAZolin 2 GM Premix Inj 2 GM/50 ML PIGGYBACK IV.SIG SCH (11:00)
[2018-05-01] MEDS ORDERED: Midazolam Inj 5 MG/ML 1 ML Vial IV.PUSH ONE (11:45)
[2018-05-01] MEDS ORDERED: Protamine Sulfate Inj 50 MG/5 ML Vial ONE (13:32)
[2018-05-01] MEDS ORDERED: Heparin 10,000 UNITS/10 ML Vial (for IV use) ONE (13:32)
[2018-05-01] MEDS ORDERED: Lidocaine PF 1% Inj 5 ML Syringe OTHER ONE (13:45)
[2018-05-01] MEDS ORDERED: Labetalol HCl Inj 100 MG/20 ML Vial IV.CONT ONE (13:45)
[2018-05-01] MEDS ORDERED: Glycopyrrolate Inj 1 MG/5 ML Syringe IV.PUSH ONE (13:45)
[2018-05-01] MEDS ORDERED: Neostigmine Inj 5 MG/5 ML Syringe IV.PUSH ONE (13:45)
--- NOTE | 2018-05-01 13:49 | MH ---
cc: Jackson Mcclendon MD DATE OF ADMISSION: 05/01/2018 CHIEF COMPLAINT: Severe symptomatic aortic stenosis [facility] class III symptoms. HISTORY OF PRESENT ILLNESS: Mr. Anupam Ramon is a very pleasant 87-year-old gentleman who has been seen by Dr. Washington. He has a past medical history of severe aortic stenosis and coronary artery disease, underwent a coronary artery bypass grafting with a VERDE to the LAD and aortic valve replacement with a 23 mm Heath mitral flow valve in 2013. He also has a past medical history of sick sinus rhythm status post pacemaker implantation with a [place] device, atrial fibrillation on anticoagulation with Eliquis, who has been experiencing progressive worsening dyspnea with exertion. He underwent a transthoracic echocardiogram, which showed that he had an aortic valve area of 0.8 with [id number] aortic regurgitation, mild to moderate mitral regurgitation, trace tricuspid regurgitation. As part of the transcatheter aortic valve replacement workup, he underwent a coronary angiogram and was found to have a patent VERDE to the LAD and severe disease of his distal circumflex, which was 90%. He underwent placement of a 2.5 x 15 and 2.5 x 12 Resolute Slater drug-eluting stent in the distal circumflex with an excellent result. The remainder of his coronary arteries showed that his right coronary artery is not occluded. The patient was recently admitted for an episode of atrial fibrillation with rapid ventricular response which was treated with calcium channel blockers. Currently, the patient denies any chest pain, PND, orthopnea, syncope, or presyncope. PAST MEDICAL HISTORY: 1. Severe aortic stenosis, status post aortic valve replacement with a 23 mm Heath mitral flow. 2. Coronary artery disease, status post VERDE to the LAD. 3. History of cerebrovascular accident in 2003 and 2008. 4. Atrial fibrillation, on Eliquis therapy. 5. Sick sinus syndrome status post Biotronik pacemaker. 6. Hypertension. 7. Coronary artery disease with a recent PCI to the distal circumflex PAST SURGICAL HISTORY: 1. He had a history of subtotal gastrectomy in 1969 secondary to ulcer. 2. History of coronary artery bypass grafting and aortic valve replacement in 10/2013. ALLERGIES: NO KNOWN DRUG ALLERGIES. FAMILY HISTORY: No sudden cardiac . SOCIAL HISTORY: The patient smoked 3-4 packs up to 30 years, but he quit in 1969. No current alcohol or illicit drug use. HOME MEDICATIONS: Reviewed in electronic medical record, he is currently on: 1. Aspirin 81 mg. 2. Plavix 75 mg daily. 3. Imdur 60 mg daily. 4. Symbicort 2 puffs inhaled b.i.d. 5. Eliquis 5 mg p.o. b.i.d. 6. Diltiazem 300 mg daily. 7. Metoprolol 50 mg b.i.d. REVIEW OF SYSTEMS: A 14-point review of system otherwise negative except as mentioned in the HPI. PHYSICAL EXAMINATION: VITAL SIGNS: Blood pressure 164/672, heart rate 86. GENERAL: Comfortable, in no acute distress. HEENT: No scleral icterus. Oropharynx moist mucous membranes. CARDIOVASCULAR: Irregularly irregular. There is a 3/6 systolic ejection murmur over the right upper sternal border. LUNGS: Clear to auscultation. ABDOMEN: Soft, nontender, nondistended. EXTREMITIES: Trace edema. SKIN: No rash. No lesions. NEUROLOGIC: A and O x3. PSYCHIATRIC: Normal affect. LABORATORY DATA: Hemoglobin is 12.7, hematocrit 36.7, platelets 184. Creatinine 0.9. EKG pending at this time. ASSESSMENT: 1. Severe symptomatic aortic stenosis secondary to degenerative bioprosthetic aortic valve disease, [facility] Class III symptoms. 2. History of coronary artery disease status post CABG with a VERDE to the LAD and recent PCI to the circumflex. 3. Atrial fibrillation, on Eliquis therapy. 4. Sick sinus syndrome status post dual chamber pacemaker. 5. History of gastrointestinal bleed. 6. History of cerebrovascular accident. 7. Moderate chronic obstructive pulmonary disease with FEV1 percent of 54. PLAN: We discussed in great detail the risks, benefits, and alternatives of the procedure. Our plan will be to perform a transcatheter valve and valve procedure with implantation of Medtronic 23 mm Evolut R valve within the 23 Heath mitral flow. We will likely perform fracture of the surgical aortic valve given the significant mismatch that the patient currently has. On his transthoracic echocardiogram, the patient had an aortic valve area of 0.83 with a mean gradient of 45 mmHg with [id number] aortic regurgitation. His STS score is 8. Our plan post-procedurally will be to place the patient on Eliquis 5 mg b.i.d. and continue his Plavix for a minimum duration of 1 year followed by cessation of Plavix and aspirin plus Eliquis. Thank you for allowing me to participate in the care of Mr. Anupam Ramon. MD DAVID Torres/ , 12:58 PM , 01:12 PM
[2018-05-01] MEDS ORDERED: Iohexol Inj 350 MG/ML 100 ML Bottle (for RAD Diag) IVCONTRAST ONE (15:26)
--- NOTE | 2018-05-01 15:28 | P.OP ---
- Preoperative Diagnosis (1) Aortic stenosis (2) CAD (coronary artery disease) (3) Diastolic heart failure - Postoperative Diagnosis (1) Aortic stenosis (2) CAD (coronary artery disease) (3) Diastolic heart failure Date of procedure: 05/01/18 Procedure: Transcatheter aortic valve replacement with a 23 Evolut R tissue valve (valve in valve 23 Mitroflow) Post dilation and fracturing of sewing ring using a 23 True balloon Bilateral percutaneous femoral artery access with Perclose closure on the right Percutaneous left femoral venous access Aortography Fluoroscopy Implants: 23 Evolut R tissue valve Anesthesia: GETA Surgeon: Kim Ashraf MD Co-surgeon - Dr. Mcclendon Pot Fluxer: Silvino Alvarez Pathology: none sent Operation and Findings: The risks, benefits, complications, treatment options, and expected outcomes were discussed with the patient. The possibilities of reaction to medication, pulmonary aspiration, perforation of viscus, bleeding, recurrent infection, the need for additional procedures, failure to diagnose a condition, and creating a complication requiring transfusion or operation were discussed with the patient. The patient concurred with the proposed plan, giving informed consent. The site of surgery properly noted/marked. The patient was taken to hybrid operating room, identified as Anupam Ramon and the procedure verified as Transcatheter Aortic Valve Replacement. A Time Out was held and the above information confirmed. Standard monitoring lines and Ponce catheter were placed. General anesthesia was induced. The patient was prepped and draped in a sterile fashion. Initially, left femoral arterial and venous access was acquired using a Seldinger percutaneous technique. The details of this procedure were dictated under separate note by cardiology. Once a pigtail was positioned in the aortic annulus and a temporary transvenous pacemaker wire was placed in the right ventricular apex and tested, the right femoral artery was accessed using a needle followed by a guidewire under fluoroscopic guidance. The patient was heparinized and 2 Perclose devices deployed for later closure. Serial dilators were used to dilate the right femoral artery to 18 Kyrgyz caliber. An 18F Dry Seal sheath was then inserted up to the distal abdominal aorta. Arch aortography was performed to define the implant view. A 23 Evolut R transcatheter aortic valve was then positioned in the annulus and deployed with the patient being paced at 120 beats per minute. Following deployment, the valve apparatus was withdrawn and arch aortography and DAWN were performed to assess the valve. The valve had no significant perivalvular leaks, but the mean gradient measured was ~20mmHg. Due to this high gradient, a post-dilation balloon valvuloplasty was performed with fracturing the sewing ring of the Mitroflow valve.using a 23 x 6 True balloon with the patient being paced at 180 beats per minute. Gradients were then measured with a mean of ~10mmHg and the sheath was removed. Perclose sutures were secured with good hemostasis. Protamine was administered. Sterile dressings were placed. At the end of the operation, all sponge, instruments, and needle counts were correct. The patient was transferred to the CVICU in stable condition. Findings: Excellent result following postdilation and sewing ring fracture Implants: 23 Evolut R tissue valve Complications: none
[2018-05-01] MEDS ORDERED: Acetaminophen 325 MG Tablet PO PRN (15:41)
[2018-05-01] MEDS ORDERED: fentaNYL Citrate Inj 100 MCG/2 ML Ampul ONE (16:06)
[2018-05-01] MEDS ORDERED: Iohexol 350 MG/ML 50 ML Vial (for Cath Lab) IVCONTRAST ONE (16:14)
--- NOTE | 2018-05-01 16:23 | P.PCNCA ---
- Cardiology Procedure Note Procedure: Transcatheter Aortic Valve Replacement Procedure Date: 05/01/18 Procedure Detail: REFERRING PHYSICIAN: Stephany Washington MD CO-SURGEONS: 1. Jackson Mcclendon MD 2. Kim Ashraf MD ASSISTING PHYSICIANS: 1. Silvino Alvarez MD 2. Paulo Baker MD PREPROCEDURE DIAGNOSIS: 1. Severe symptomatic aortic stenosis 2/2 to degenerative Bioprosthetic Aortic Valve Disease, NYHA III symptoms 2. History of AVR with 23 mm Heath Mitroflow and CABG with VERDE to LAD 10/2013 3. History of recent PCI to the Distal Circumflex 4. Chronic Atrial Fibrillation on Eliquis POSTPROCEDURE DIAGNOSES: 1. Successful Implantation of a 23 mm Evolut R valve in valve via the Right Common Femoral Artery, We performed post dilation and fracturing of the surgical sewing ring using a 23 mm True Balloon that was inflated to high atmospheres with a final mean gradient of 10mm Hg PROCEDURES PERFORMED: 1. General Anesthesia by Anesthesiology. 2. Illiofemoral Angiography. 3. Ascending aortography. 4. Left heart catheterization with simultaneous left ventricular and aortic pressures. 5. Insertion and removal of an 18 F [place] Dry Seal via the right femoral access with 2 Perclose sutures deployed in a preclose fashion. 6. Successful deployment of a 23 mm Evolut R Valve in Valve in a pre-existing 23 mm Heath Mitroflow. We performed post-dilatation and fracturing of surgical sewing ring using a 23 True Balloon at high atmospheric pressures. 7. Perclose vascular closure of the left femoral arteriotomy and venotomy sites. INDICATIONS: Mrs. Ramon, presented with NYHA III symptoms and Severe Symptomatic Aortic Stenosis secondary to a degenerative bioprosthetic aortic valve. Please see H and P for full details. DESCRIPTION OF THE PROCEDURE: After discussion of the risks, benefits, and alternatives, the patient signed informed consent. He was brought to the catheterization suite in a stable fasting and nonsedated state. He was sterilely prepped and draped in the usual fashion and placed under General Anesthesia. A baseline DAWN was performed. We placed a 6-Mauritanian pinnacle sheath in the left femoral artery using a modified Seldinger technique. A second 6-Mauritanian pinnacle sheath was placed in the left femoral vein using a modified Seldinger technique. We then advanced a 5-Mauritanian rim catheter with a Glidewire through the left femoral arterial sheath, and advanced it into the right external iliac artery. We then performed a direct anterior puncture of the right femoral artery using fluoroscopy and direct visualization with contrast injection through the rim catheter. Two Perclose suture devices were deployed to the right femoral arteriotomy in a preclose fashion. We dilated the arteriotomy site with and then placed an 18 F GoreDryseal Sheath over a Supracore wire. We advanced a 6-Mauritanian pigtail catheter through the left femoral arterial sheath into the ascending aorta and performed ascending aortography. Through the right femoral arterial sheath, we advanced an AL1 diagnostic catheter over a Supracore and then exchanged out for a straight wire, which we used to cross the aortic valve. The AL1 diagnostic catheter was advanced into the left ventricle and the wire switched out for a J wire, which was advanced into the left ventricle. We then advanced a Confida wire through the left ventricular pigtail catheter and removed the pigtail catheter. We inserted then inserted the 23 mm Evolut R valve and deployed it within the original surgical valve at a pacing rate of 120.We subsequently removed our catheter delivery sheath and placed a pigtail. Our mean gradient was greater than 20 mmHg. We then made a decision to fracture the surgical valve. Using a 23 mm True balloon we performed an inflation to high atmospheric pressures. Our final result showed an FRANCESCA 1.2cm2, post mean gradient of 10 mmHg, velocity 219, and no PVL. The patient tolerated the procedure well. We removed our True Balloon and perclosed the right femoral arteriotomy. Protamine was given to reverse the ACT. We performed perclose vascular close of the left femoral arteriotomy and left femoral venotomy sites. Procedural Summary: Successful valve in valve with a 23 mm Evolut R via the right transfemoral, with post-fracture of the surgical sewing ring. PLAN: 1. We will complete access site precautions and monitor in the Intensive Care Unit. 2. We will restart Eliquis tomorrow and the patient will be d/c on Plavix and Eliquis. 3. Plan for transthoracic echocardiography to evaluate the aortic valve tomorrow. Thank you for involving us in the care of Mr. Ramno, It has been our pleasure. Please contact us if you have any questions or need further assistance.
[2018-05-01] MEDS: Sod Chloride 0.9% Inj 1,000 ML IV.CONT SCH ×2 (16:25→17:34)
--- NOTE | 2018-05-01 16:36 | P.PCN ---
Date of procedure: 05/01/18 Pre-op diagnosis: aortic stenosis Post-op diagnosis: same Procedure: Procedure: Transesophageal Echocardiography Diagnosis: Severe aortic stenosis Indications: Perioperative planning for transcatheter aortic valve replacement Consent: Obtained Anesthesia: General endotracheal anesthesia Description of the Procedure: The patient was sedated and mechanically ventilated. The echo probe was inserted easily and without resistance. At the conclusion of the procedure, the echo probe was removed. Please see detailed echocardiogram report for formal findings. Preliminary Findings (not confirmed): Pre-procedure: 1) normal biventricular function 2) left ventricular hypertrophy 3) severe aortic stenosis 4) no evidence of intra-atrial shunting by color flow Doppler 5) no pericardial effusion Post-procedure: 1) s/p transcatheter aortic valve replacement 2) no evidence of bioprosthetic valve stenosis 3) no perivalvular leak 4) no pericardial effusion The patient tolerated the procedure well with no hemodynamic instability. There were no immediate complications noted. There was minimal EBL. I personally performed the procedure.
--- NOTE | 2018-05-01 16:39 | XR ---
EXAM DATE: 05/01/2018 4:31 PM EDT AGE/SEX: 87 years / Male INDICATIONS: Post TAVR CLINICAL DATA: This is the patient's subsequent encounter. Patient reports that signs and symptoms h ave been present for 2 weeks and indicates a pain score of Nonresponsive. MEDICAL/SURGICAL HISTORY: Chronic obstructive pulmonary disease. Pacemaker. 2 stent placements. COMPARISON: [facility], CHEST 1V SINGLE AP, 04/24/2018. . FINDINGS: A single AP view of the chest demonstrates new hazy opacification throughout the right hemithorax. T here is also new left retrocardiac opacification with diffuse left interstitial opacities. The cardio mediastinal silhouette is minimally more prominent, with new mild leftward deviation. Postoperative c hanges again seen in the mediastinum, including prior left atrial appendage closure, with interval TA VR. Pacemaker remains in place. Right IJ central venous catheter with distal tip projecting over the high SVC. Osseous structures are intact. CONCLUSION: 1. New opacification throughout the right hemithorax, and new left retrocardiac opacification with d iffuse left interstitial opacities. Findings may represent a combination of pleural fluid and pulmona ry parenchymal disease. Clinical correlation is recommended. In the setting of recent TAVR, pulmonary edema should be considered. 2. There is mild leftward mediastinal shift related to the right hemithoracic opacification, likely fluid. 3. Additional details as above. Electronically signed by: Elizabeth Jacobo MD 05/01/2018 4:37 PM EDT
--- NOTE | 2018-05-01 16:45 | P.CON ---
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 He underwent uncomplicated TAVR. During the course of the elective plan TAVR, post dilation was accomplished with intentional ring fracture. He arrives to the CVICU extubated in stable condition arousing from anesthesia. No additional information is available from patient due to his arousal from anesthesia. Limited review of systems is negative for chest pain, shortness of breath, nausea, vomiting, headache or sore throat. Review of Systems All other systems reviewed negative except as stated in HPI PMFSH - History History Provided By: Patient - Medical History Medical History: Medical History (Last Reviewed 05/01/18 @ 16:41 by German Sena MD) Mitral regurgitation (Acute) HLD (hyperlipidemia) (Acute) CVA (cerebral vascular accident) (Acute) Pacemaker (Acute) Shortness of breath (Acute) Prediabetes (Acute) PAD (peripheral artery disease) (Acute) CHF (congestive heart failure) (Acute) Atrial fibrillation (Acute) Aortic valve stenosis (Acute) Hypertension (Acute) - Surgical History Surgical History: Surgical History (Last Reviewed 05/01/18 @ 16:41 by German Sena MD) H/O heart artery stent H/O prior ablation treatment - Family History Family History: Family History (Last Reviewed 05/01/18 @ 16:41 by German Sena MD) Other Family history of cancer - Social History I have reviewed the patient's Social History: Yes - Tobacco History Second Hand Smoke Exposure: No Smoking Status: Former smoker - Alcohol History How Often Do You Have a Drink Containing Alcohol: 2 to 4 times a month - Substance Use History Substance History: No History of Abuse - Travel History History of Recent Travel: No - Immunization History Hx Influenza Vaccine This Season: No Medications and Allergies Active Medications: Active Medications Acetaminophen (Tylenol) 650 mg PO Q4H PRN PRN Reason: PAIN SCALE 1 TO 2 Stop: 05/02/18 15:40 Aspirin (Aspirin) 325 mg PO [employer]ICAL [employer]OCHE[employer]ICAL GENETICIST [facility] Stop: 05/04/18 10:15 Chlorhexidine Gluconate (Chlorhexidine 2% Cloth) 3 pack TOPICAL CLINICAL BIOCHEMICAL GENETICIST [facility] Stop: 05/04/18 10:15 Clonidine HCl (Catapres) 0.2 mg PO Q6H PRN PRN Reason: SBP > 160 mmHg Clopidogrel Bisulfate (Plavix) 75 mg PO DAILY [facility] Cefazolin Sodium 2,000 mg/ (Sodium Chloride) 120 mls @ 240 mls/hr IV.SIG [employer]ICAL BIOCHEMICAL GENETICIST [facility] Stop: 05/04/18 10:59 Sodium Chloride (Ns Inj) 1,000 mls @ 125 mls/hr IV.CONT .Q8H [facility] Last Admin: 05/01/18 16:25 Dose: 125 mls/hr Mupirocin (Bactroban 2% Nasal Oint) 1 applicatio EACH NARE [employer]ICAL BIOCHEMICAL GENETICIST [facility] Stop: 05/04/18 10:15 Povidone Iodine (Betadine 5% Antisepsis Kit) 1 applicatio TOPICAL CL[employer]ICAL BIOCHEMICAL GENETICIST [facility] Stop: 05/04/18 10:15 Allergies Allergy/AdvReac Type Severity Reaction Status Date / Time No Known Allergies Allergy Verified 04/24/18 08:26 Home Medications Medication Instructions Recorded Confirmed Type diltiazem HCl 300 mg PO DAILY 04/03/18 05/01/18 History ferrous sulfate 325 mg PO DAILY 04/03/18 05/01/18 History gemfibrozil 600 mg PO BID 04/03/18 05/01/18 History lutein 40 mg PO DAILY 04/03/18 05/01/18 History vitamin [id number] acid 1 tab PO DAILY 04/03/18 05/01/18 History Physical Exam Vital signs: Vital Signs 05/01/18 11:00 05/01/18 11:03 05/01/18 13:26 Temperature 37.1 C Pulse Rate 75 75 Respiratory Rate 16 Blood Pressure 132/43 L Pulse Oximetry 99 98 05/01/18 16:00 Temperature 36.3 C L Pulse Rate 75 Respiratory Rate 17 Blood Pressure 145/45 H Pulse Oximetry 91 L Intake & Output 04/30/18 05/01/18 05/01/18 18:59 06:59 18:59 Intake Total 1100 / 1100 Output Total 155 / 155 Balance 945 / 945 Weight 70.5 kg Intake: Anesthesia Amount 1100 / 1100 Output: Estimated Blood Loss 5 / 5 Urine Amount (Catheter) 150 / 150 Indwelling Temp Sensing 150 / 150 Catheter Other: Weight On Admission 70.5 kg Narrative: GENERAL: Frail elderly male, lying in bed, arousing from anesthesia HEENT: Normocephalic. Atraumatic. Pupils equal, round, reactive, conjugate. Mucous membranes are moist NECK: Trachea is midline. There is no JVD. right IJ introducer sheath with transvenous pacer in place, site is clean and dry, dressing intact. CHEST: unlabored. equal chest rise. nc o2. CARDIOVASCULAR: normal rate, regular rhythm. Transvenous pacer is set VVI at a backup rate of 50. not currently paced. ABDOMEN: Soft, nontender, nondistended. No guarding. MUSCULOSKELETAL: Pulses 2+. No peripheral edema. bilateral groin sites are clean and dry, no evidence of hematoma, dressing intact. distal LE pulses are Dopplerable. NEUROLOGICAL: RASS -2. Arousing from anesthesia. follows commands. moves all extremities. no focal deficits. - Urinary Catheter Management Indwelling Temp Sensing Catheter Cath placed during this visit: yes Reason for continuing: Hourly intake/output Insertion date: 05/01/18 Insertion time: 13:55 Assessment and Plan - Plan Assessment: 87-year-old male postop day 0 status post valve in valve transcatheter aortic valve replacement. Clinically doing well. Monitor urine output and lower extremity neurovascular checks. s/p TAVR [id number] with post-dilation intentional ring fracture, 05/01, groin access. - uop monitoring - mivf - frequent neurovascular checks - anticoagulation per Dr. Mcclendon Hypertension - goal sbp < 180 - add back anti-hypertensives as needed atrial fibrillation - currently rate controlled - anticoagulation per Dr. Mcclendon Congestive heart failure secondary to valvulopathy - mivf today. will eventually need diuresis in the future Hyperlipidemia - restart home statin SSI advance diet after flat time SCDs Critical care medicine will follow along with you while patient remains in the CVICU.
--- NOTE | 2018-05-01 16:52 | P.PCN ---
Date of procedure: 05/01/18 Pre-op diagnosis: severe aortic stenosis Procedure: This is the corrected and amended note for the transesophageal echocardiography procedure note from 05/01. Please disregard my prior documented procedure note as it was entered in error. Procedure: Transesophageal Echocardiography Diagnosis: severe bioprosthetic aortic valve stenosis Indications: Perioperative planning for transcatheter aortic valve replacement Consent: Obtained from the patient Anesthesia: General endotracheal anesthesia Description of the Procedure: The patient was sedated and mechanically ventilated. The echo probe was inserted easily and without resistance. At the conclusion of the procedure, the echo probe was removed. Please see detailed echocardiogram report for formal findings. Preliminary Findings (not confirmed): Pre-procedure: 1) normal biventricular function 2) left ventricular hypertrophy 3) the patient is status post bioprosthetic aortic valve replacement 4) evidence of severe bioprosthetic aortic valve stenosis 5) moderate aortic regurgitation 6) mild mitral regurgitation 7) no evidence of intra-atrial shunting by color flow Doppler 8) no pericardial effusion Post-procedure: 1) s/p successful placement of transcatheter aortic valve 2) evidence of severe transcatheter aortic valve stenosis with mean gradient of 22 mmHg, calculated valve area of 0.9 cm2. These findings were discussed with the entire structural heart team at bedside during the procedure and after review of the images, the entire team decided to pursue post-dilation with intentional fracture of the valve ring. Post-dilation 1) improved flow through the aortic valve 2) mild transcatheter aortic valve stenosis with a mean gradient of 10 mmHg. 3) no pericardial effusion 4) no evidence of ascending aortic dissection 5) no perivalvular leak The patient tolerated the procedure well with no hemodynamic instability. There were no immediate complications noted. There was minimal EBL. I personally performed the procedure.
--- NOTE | 2018-05-01 16:53 | P.PCN ---
Date of procedure: 05/01/18 Pre-op diagnosis: Severe aortic stenosis Procedure: Procedure: Arterial Line Placement Right radial arterial line Diagnosis: Severe aortic stenosis Indications: Beat to beat hemogenic monitoring Consent: Obtained from the patient Description of the Procedure: The right wrist was prepped and draped sterilely. 1% lidocaine was used for local anesthesia. Ultrasound guidance was used to identify the right radial artery. The anatomy the right wrist was normal. Under direct real-time ultrasound guidance, the artery was located and a needle was advanced into the artery. A 20 gauge, 12 cm catheter was advanced into the artery using a modified Seldinger technique. The catheter was sutured to the skin and a sterile dressing was applied. The catheter was connected to a pressure transducer and an arterial waveform was noted. There were no immediate complications noted. There was minimal EBL. I personally performed the procedure.
--- NOTE | 2018-05-01 16:55 | P.PCN ---
Date of procedure: 05/01/18 Pre-op diagnosis: Severe aortic stenosis Post-op diagnosis: same Procedure: Central Line Procedure Note Right IJ 6 Grenadian introducer sheath Diagnosis: Severe aortic stenosis Indications: Need for temporary transvenous pacing Consent: Obtained from the patient Anesthesia: Versed IV and 1% lidocaine locally Description of the Procedure: The patient was placed in the supine, mild- Trendelenburg position. The area was prepped and draped sterilely. A 19g needle was inserted under negative pressure aspiration and dark venous blood was obtained. A guidewire was inserted easily without resistance. A small incision was made using a #11 blade. Using a modified Seldinger technique, the dilator and 6 Grenadian catheter were advanced over the guidewire without resistance. All ports were aspirated and flushed, and had brisk blood return. The line was secured at the skin using 2-0 silk interrupted sutures. Suture was used instead of a non-suture StatLock device due to the configuration and size of the sheath. A Biopatch and Transparent sterile dressing were applied. There were no immediate complications noted. There was minimal EBL. The patient tolerated the procedure well. Ultrasound Guidance: Ultrasound guidance was used to identify the right internal jugular vein. The vascular anatomy of the right anterior neck was normal. The vessel was cannulated under direct, real-time ultrasound visualization. After placement of the guidewire, confirmation of the guidewire in the lumen of the vessel was made using ultrasound visualization, before dilation of the tract. I personally performed the procedure.
--- NOTE | 2018-05-01 16:56 | P.PCN ---
Date of procedure: 05/01/18 Pre-op diagnosis: Severe aortic stenosis Procedure: Transvenous Pacer Procedure Note Diagnosis: Severe aortic stenosis Indications: Need for rapid pacing for transcatheter aortic valve replacement Consent: Obtained from the patient Anesthesia: Versed IV Description of the Procedure: The patient was placed in the supine, mild- Trendelenburg position. The area was prepped and draped sterilely. A central introducer sheath was placed (see separate procedure note for details). Through this sheath, the 5 Fr transvenous pacer was inserted sterilely to a depth of 20 cm. The balloon was inflated and advanced in diastole with the pacer connected under real-time electrocardiographic monitoring, until capture was obtained. The balloon was deflated. The pacer was secured in position. There were no immediate complications noted. There was minimal EBL. The patient tolerated the procedure well. Depth at Capture: 35 cm mA at capture: 0.4 I personally performed the procedure.
[2018-05-01] MEDS ORDERED: Polyethylene Glycol 3350 17 GM Packet PO PRN (17:08)
[2018-05-01] MEDS ORDERED: Sodium Phosphate Inj 30 MMOL in Sodium Chlor 0.9% Inj 250 ML IV.SIG PRN (17:09)
[2018-05-01] MEDS ORDERED: Magnesium Oxide 400 MG Tablet PO PRN (17:09)
[2018-05-01] MEDS ORDERED: Potassium Chloride 25 MEQ Effervescent Tablet PO PRN (17:09)
[2018-05-01] MEDS ORDERED: Magnesium Sulfate Inj 2 GM in Sodium Chlor 0.9% Inj 96 ML IV.SIG PRN (17:09)
[2018-05-01] MEDS ORDERED: Potassium Chlor 20 mEq Premix 20 MEQ/100 ML PIGGYBACK IV.SIG PRN ×2 (17:09)
[2018-05-01] MEDS ORDERED: Magnesium Sulfate Inj 4 GM in Sodium Chlor 0.9% Inj 92 ML IV.SIG PRN (17:09)
[2018-05-01] MEDS ORDERED: Potassium Chlor 40 mEq Premix 40 MEQ/100 ML PIGGYBACK IV.SIG PRN (17:09)
[2018-05-01] MEDS ORDERED: Potassium Phosphate Inj 30 MMOL in Sodium Chlor 0.9% Inj 250 ML IV.SIG PRN (17:09)
[2018-05-01] MEDS ORDERED: Potassium Phosphate 500 MG Soluble Tablet PO PRN ×2 (17:09)
[2018-05-01] MEDS: Metoprolol Tartrate 50 MG Tablet PO SCH (22:28)
[2018-05-01] MEDS: Budesonide-Formoterol 160/4.5 MCG 6 GM Inhaler INH SCH (22:28)
[2018-05-01] MEDS: Gemfibrozil 600 MG Tablet PO SCH (22:28)
[2018-05-01 23:08] VITALS: RESP 18
[2018-05-02 05:38] LABS: Hematocrit 29.6 % (39.0-51.0); Hemoglobin 10.6 gm/dL (13.0-17.0); Mean Corpuscular HGB Conc 35.7 % (32.0-36.0); Mean Corpuscular Hemoglobin 32.1 pg (27.0-34.0); Mean Corpuscular Volume 90.1 fL (80.0-100.0); Mean Platelet Volume 7.5 fL (7.0-11.0); Platelet Count 215 th/mm3 (150-450); Red Blood Count 3.29 mil/mm3 (4.50-5.90); White Blood Count 10.5 th/mm3 (4.0-11.0)
[2018-05-02 06:07] LABS: Anion Gap 11 meq/L (5-15); Blood Urea Nitrogen 10 mg/dL (7-18); Calcium 8.2 mg/dL (8.5-10.1); Carbon Dioxide 25.8 meq/L (21.0-32.0); Chloride 103 meq/L (98-107); Glomerular Filtration Rate Greater Than 89 mL/min (>89); Glucose,Random 102 mg/dL (74-106); Potassium 3.2 meq/L (3.5-5.1); Sodium 140 meq/L (136-145)
[2018-05-02] MEDS: Sod Chloride 0.9% Inj 1,000 ML IV.CONT SCH ×2 (06:14→09:55)
[2018-05-02] MEDS: Potassium Chlor 40 mEq Premix 40 MEQ/100 ML PIGGYBACK IV.SIG PRN ×2 (06:34→08:23)
[2018-05-02 07:26] VITALS: O2SAT 89
--- NOTE | 2018-05-02 08:11 | P.DS ---
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 DS: Diagnosis - Discharge Diagnosis (1) Aortic stenosis Status: Acute (2) Hypertension Status: Acute (3) CHF (congestive heart failure) Status: Acute (4) CAD (coronary artery disease) Status: Chronic (5) Atrial fibrillation Status: Chronic DS: Summary Hospital Course: The patient underwent a successful 23 mm Evolut R valve in valve procedure with fracturing of the surgical valve.The patient tolerated the procedure well without any complications. Given his recent PCI, he will be discharged on Eliquis and Plavix. He will follow up with me in 1 week and follow up with Dr. Washington in 1 month with a repeat TTE. - Time Spent with Patient Total time spent providing and/or coordinating discharge services: Greater than 30 minutes - Quality: VTE Deep Vein Thrombosis/Pulmonary Embolism Present on Admission: No Exam Vital signs: Vital Signs 05/01/18 11:00 05/01/18 11:03 05/01/18 13:26 Temperature 98.7 F Pulse Rate 75 75 Respiratory Rate 16 Blood Pressure 132/43 L Pulse Oximetry 99 98 05/01/18 16:00 05/01/18 18:04 05/01/18 19:58 Temperature 97.4 F L Pulse Rate 75 Respiratory Rate 17 Blood Pressure 145/45 H Pulse Oximetry 91 L 95 94 L 05/01/18 20:00 05/01/18 23:00 05/02/18 00:00 Temperature 98.8 F 98.7 F Pulse Rate 78 74 74 Respiratory Rate 18 18 Blood Pressure 151/49 H 127/57 L Pulse Oximetry 95 95 05/02/18 04:00 05/02/18 05:00 05/02/18 07:00 Temperature 98.5 F 98.3 F Pulse Rate 74 76 Respiratory Rate 18 18 Blood Pressure 148/46 H 128/80 Pulse Oximetry 97 93 L 89 L Intake & Output 05/01/18 05/02/18 05/02/18 18:59 06:59 18:59 Intake Total 1950 / 1950 1260 / 1260 Output Total 1445 / 1445 900 / 900 Balance 505 / 505 360 / 360 Weight 70.5 kg 71.5 kg Intake: IV 370 / 370 630 / 630 NS Inj 1,000 ML @ 125 mls/hr IV 370 / 370 630 / 630 .CONT .Q8H [facility] Rx#:[id number] Oral 480 / 480 630 / 630 Anesthesia Amount 1100 / 1100 Output: Estimated Blood Loss 5 / 5 Urine Amount (Catheter) 1440 / 1440 900 / 900 Indwelling Temp Sensing 1440 / 1440 900 / 900 Catheter Other: Weight On Admission 70.5 kg - Constitutional no acute distress - Routine HEENT Exam Head: Present: normocephalic Eye: Present: EOMI ENT: Present: mucous membranes moist - Routine Neck Exam Present: supple. Absent: JVD - Routine Chest/Breast/Axilla Exam Chest wall: Absent: tenderness - Routine Respiratory Exam Present: CTA bilaterally - Routine Cardiovascular Exam Present: S1, S2, irregularly irregular - Routine Abdominal Exam Present: soft, normoactive bowel sounds - Routine Extremities Exam Absent: edema Comments: DP and PT 2+ Femoral pulses 2+ No hematoma Present - Routine Skin Exam Present: intact - Routine Neurological Exam Present: alert, oriented X3, CN II-XII intact - Routine Psychiatric Exam Present: normal affect Results Procedures completed during hospitalization: See procedure Report. The patient underwent and TAVR valve in valve procedure. He tolerated the procedure well. Labs on day of discharge: Labs from last 24 hours 05/02/18 05/02/18 05/01/18 05:10 05:10 08:03 WBC 10.5 RBC 3.29 L Hgb 10.6 L Hct 29.6 L MCV 90.1 MCH 32.1 MCHC 35.7 RDW 14.0 Plt Count 215 MPV 7.5 Sodium 140 Potassium 3.2 L Chloride 103 Carbon Dioxide 25.8 Anion Gap 11 BUN 10 Creatinine 0.55 L Estimated GFR Greater than 89 Random Glucose 102 Calcium 8.2 L MTS Gel Crossmatch See Detail Bld Prod Order Comment - Impressions ITS Impressions Chest X-Ray 05/01/18 15:44 CONCLUSION: 1. New opacification throughout the right hemithorax, and new left retrocardiac opacification with diffuse left interstitial opacities. Findings may represent a combination of pleural fluid and pulmonary parenchymal disease. Clinical correlation is recommended. In the setting of recent TAVR, pulmonary edema should be considered. 2. There is mild leftward mediastinal shift related to the right hemithoracic opacification, likely fluid. 3. Additional details as above. Discharge Plan - Discharge Disposition Patient Disposition: 01 Discharge Home - Discharge Condition Condition: Fair - Discharge Order Discharge Orders: Discharge Order (Routine); Ordered 05/02/18 Ordered By: Jackson Mcclendon Cardiology Clear for Discharge (Routine); Ordered 05/02/18 Ordered By: Jackson Mcclendon - Physicians Team Primary Care Provider: Justine Chavez Attending Provider: Jackson Mcclendon Other Providers: German Sena MD - Rxs /Orders / Referrals /Forms Prescriptions: New apixaban [Eliquis] 5 mg Tablet 5 mg PO BID RF: 0 budesonide-formoterol [Symbicort] 160-4.5 mcg/actuation Hfa Aerosol Inhaler 2 puff INH BID RF: 0 clopidogrel [Plavix] 75 mg Tablet 75 mg PO DAILY RF: 0 diltiazem HCl 300 mg Capsule,Extended Release 24hr 300 mg PO DAILY RF: 0 gemfibrozil [Lopid] 600 mg Tablet 600 mg PO BIDAC RF: 0 isosorbide mononitrate 60 mg Tablet Extended Release 24 Hr 60 mg PO DAILY RF: 0 metoprolol tartrate 50 mg Tablet 50 mg PO BID RF: 0 potassium chloride 10 mEq Capsule, Extended Release 10 meq PO DAILY Qty: 7 RF: 0 Continue budesonide-formoterol [Symbicort] 160-4.5 mcg/actuation Hfa Aerosol Inhaler 2 puff INH BID RF: 0 clopidogrel [Plavix] 75 mg Tablet 75 mg PO DAILY Qty: 90 RF: 3 diltiazem HCl 300 mg Tablet Extended Release 24 Hr 300 mg PO DAILY ferrous sulfate 325 mg (65 mg iron) Tablet 325 mg PO DAILY gemfibrozil 600 mg Tablet 600 mg PO BID isosorbide mononitrate 60 mg Tablet Extended Release 24 Hr 60 mg PO DAILY RF: 0 lutein 40 mg Capsule 40 mg PO DAILY metoprolol tartrate 50 mg Tablet 50 mg PO BID Qty: 60 RF: 5 Discontinued aspirin [Aspirin Low Dose] 81 mg Tablet,Delayed Release (Dr/Ec) 81 mg PO DAILY Qty: 30 RF: 0 polyethylene glycol 3350 [Miralax] 17 gram Powder In Packet 17 g PO DAILY PRN (Reason: Constipation) Qty: 30 RF: 0 vitamin [id number] acid 0.5-1 mg Tablet 1 tab PO DAILY Referrals: Justine Chavez MD [Primary Care Provider] - See Instructions - Discharge Instructions Patient Printed Instructions: Transcatheter Aortic Valve Replacement (DC)
[2018-05-02] MEDS: Budesonide-Formoterol 160/4.5 MCG 6 GM Inhaler INH SCH (08:22)
[2018-05-02] MEDS: Metoprolol Tartrate 50 MG Tablet PO SCH (08:23)
[2018-05-02] MEDS: Gemfibrozil 600 MG Tablet PO SCH (08:23)
[2018-05-02] MEDS ORDERED: Vitamin B Complex/Vit C/Folic Tablet PO SCH (09:00)
[2018-05-02] MEDS ORDERED: Potassium Chloride 10 MEQ ER Capsule PO SCH (09:00)
[2018-05-02] MEDS ORDERED: Isosorbide Mononitrate 60 MG ER 24HR Tablet (Imdur) PO SCH (09:00)
[2018-05-02] MEDS ORDERED: Ferrous Sulfate 325 MG Tablet PO SCH (09:00)
[2018-05-02] MEDS ORDERED: dilTIAZem CD 300 MG Capsule PO SCH (09:00)
[2018-05-02 11:18] VITALS: BP 127/55; PULSE 84; TEMP 98.4
--- NOTE | 2018-05-02 11:56 | ECHRPT ---
Indication: POST TAVR CONCLUSIONS Normal left ventricular size. Mild concentric left ventricular hypertrophy. The left ventricular systolic function is normal with an estimated ejection fraction in the range of 55-60%. Status post transcatheter aortic valve replacement Trace aortic valve regurgitation. Aortic valve mean gradient is 15 mmhg.There is moderate to severe tricuspid valve regurgitation. RVSP is 70 mmhg. BP: / HR: Rhythm: MEASUREMENTS (Male / Female) Normal Values Technical Quality: 2D ECHO LVOT Diameter 1.2 cm LV Ejection Fraction MOD 4C 50.7 % LV Ejection Fraction 4C AL 51.6 % M-MODE LV Diastolic Diameter MM 4.3 cm 4.2 - 5.9 / 3.9 - 5.3 cm LV Systolic Diameter MM 3.4 cm LV Ejection Fraction MM Teich 41.7 % IVS Diastolic Thickness MM 1.6 cm 0.6 - 1.0 / 0.6 - 0.9 cm LVPW Diastolic Thickness MM 1.6 cm 0.6 - 1.0 / 0.6 - 0.9 cm LV Relative Wall Thickness MM 0.7 0.24 - 0.42 / 0.22 - 0.42 Aortic Root Diameter MM 2.1 cm LA Systolic Diameter MM 5.0 cm LA Ao Ratio MM 2.4 AV Cusp Separation MM 1.0 cm DOPPLER AV Peak Velocity 280.0 cm/s AV Peak Gradient 31.4 mmHg AV Mean Gradient 15.3 mmHg AV Velocity Time Integral 48.2 cm AI Peak Velocity 174.0 cm/s AI Peak Gradient 12.1 mmHg AI Pressure Half Time 466.0 ms Mitral E Point Velocity 101.0 cm/s Mitral A Point Velocity 36.5 cm/s Mitral E to A Ratio 2.8 TV Peak Velocity 350.0 cm/s TR Peak Velocity 387.0 cm/s TR Peak Gradient 59.9 mmHg Right Atrial Pressure 10.0 mmHg Pulmonary Artery Systolic Pressu 69.9 mmHg Right Ventricular Systolic Press 69.9 mmHg PV Peak Velocity 122.0 cm/s PV Peak Gradient 6.0 mmHg FINDINGS LEFT VENTRICLE Normal left ventricular size. Mild concentric left ventricular hypertrophy. The left ventricular systolic function is normal with an estimated ejection fraction in the range of 55-60%. RIGHT VENTRICLE Normal right ventricular size and systolic function. LEFT ATRIUM The left atrial size is normal. RIGHT ATRIUM The right atrial size is normal. ATRIAL SEPTUM Normal atrial septal thickness without atrial level shunting by limited color doppler interrogation. AORTA The aortic root and proximal ascending aorta are normal in size on limited imaging. MITRAL VALVE Structurally normal mitral valve. No mitral valve stenosis or regurgitation. AORTIC VALVE Trace aortic valve regurgitation. Aortic valve mean gradient is 15 mmhg. Status post transcatheter aortic valve replacement. No paravalvular leak. TRICUSPID VALVE There is moderate to severe tricuspid valve regurgitation. RVSP is 70 mmhg. PULMONARY VALVE No pulmonary valve regurgitation or stenosis. VESSELS The inferior vena cava is normal in size. PERICARDIUM No pericardial effusion. Silvino Alvarez MD, FACC (Electronically Signed) Final Date:02 May 2018 11:55
--- NOTE | 2018-05-02 14:22 | P.PNCV ---
- Note Subjective/Hospital Course: 87-year-old male with history of prior bioprosthetic aortic valve replacement who presents who has been experiencing progressive worsening dyspnea with exertion. 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 He underwent uncomplicated TAVR. He was extubated after surgery in stable condition, chronic HX of Afib rate controlled . placed back on Eliquis and ASA. PMH severe aortic stenosis and coronary artery disease, underwent a coronary artery bypass grafting with a VERDE to the LAD and aortic valve replacement with a 23 mm Heath mitral flow valve in 2013. He also has a past medical history of sick sinus rhythm status post pacemaker implantation with a [place] device, atrial fibrillation on anticoagulation with Eliquis, rtion. He underwent a transthoracic echocardiogram, which showed that he had an aortic valve area of 0.8 with [id number] aortic regurgitation, mild to moderate mitral regurgitation, trace tricuspid regurgitation. As part of the transcatheter aortic valve replacement workup, he underwent a coronary angiogram and was found to have a patent VERDE to the LAD and severe disease of his distal circumflex, which was 90%. He underwent placement of a 2.5 x 15 and 2.5 x 12 Resolute Jignesh drug-eluting stent in the distal circumflex. with an excellent result. HX cerebrovascular accident in 2003 and 2008, Hypertension. 05/02 pt doing well remains in NSR, both groin sites without hematoma , IJ CVC line removed by nursing , has pacer insitu pain free , on room air Objective: Vital Signs - 24 hr 05/01/18 16:00 05/01/18 18:04 05/01/18 19:58 Temperature 97.4 F L Pulse Rate 75 Respiratory Rate 17 Blood Pressure 145/45 H Pulse Oximetry 91 L 95 94 L 05/01/18 20:00 05/01/18 23:00 05/02/18 00:00 Temperature 98.8 F 98.7 F Pulse Rate 78 74 74 Respiratory Rate 18 18 Blood Pressure 151/49 H 127/57 L Pulse Oximetry 95 95 05/02/18 04:00 05/02/18 05:00 05/02/18 07:00 Temperature 98.5 F 98.3 F Pulse Rate 74 76 Respiratory Rate 18 18 Blood Pressure 148/46 H 128/80 Pulse Oximetry 97 93 L 89 L 05/02/18 11:00 Temperature 98.4 F Pulse Rate 84 Respiratory Rate 18 Blood Pressure 127/55 L Pulse Oximetry GENERAL: A&O x 3 SKIN: Warm and dry. puncture sites both groins intact and without hematoma HEAD: Normocephalic. EYES: No scleral icterus. No injection or drainage. NECK: Supple, trachea midline. No JVD or lymphadenopathy. CARDIOVASCULAR: irregular rate and rhythm without murmurs, gallops, or rubs. RESPIRATORY: Breath sounds equal bilaterally. No accessory muscle use. GASTROINTESTINAL: Abdomen soft, non-tender, nondistended. MUSCULOSKELETAL: No cyanosis, or edema. BACK: Nontender without obvious deformity. No CVA tenderness. Labs: Laboratory Results - last 12 hr 05/01/18 05/02/18 05/02/18 08:03 05:10 05:10 WBC 10.5 RBC 3.29 L Hgb 10.6 L Hct 29.6 L MCV 90.1 MCH 32.1 MCHC 35.7 RDW 14.0 Plt Count 215 MPV 7.5 Sodium 140 Potassium 3.2 L Chloride 103 Carbon Dioxide 25.8 Anion Gap 11 BUN 10 Creatinine 0.55 L Estimated GFR Greater than 89 Random Glucose 102 Calcium 8.2 L MTS Gel Crossmatch See Detail Result Diagrams: 05/02/18 05:10 05/02/18 05:10 Telemetry: Afib - Plan (1) S/P TAVR (transcatheter aortic valve replacement) Plan: pt stable for dc from CVS standpoint f/u with cardiology pt back on Eliquis and ASA further orders and plan deferred to Cardiology (2) CAD (coronary artery disease) (3) Diastolic heart failure (2) CAD (coronary artery disease) Qualifiers: Coronary Disease-Associated Artery/Lesion type: [place] artery [place] vs. transplanted heart: [place] heart Associated angina: with stable angina Qualified Code(s): I25.118 - Atherosclerotic heart disease of [place] coronary artery with other forms of angina pectoris (3) Diastolic heart failure Qualifiers: Heart failure chronicity: acute on chronic Qualified Code(s): I50.33 - Acute on chronic diastolic (congestive) heart failure
--- NOTE | 2018-05-02 19:52 | ECG ---
Date Performed: 05/01/2018 Time Performed: 09:59:22 PTAGE: 87 years EKG: UNDERLYING RHYTHM IS DIFFICULT TO DISCERN, there is no evident T waves, sligthly irregular, possibly represent atrial fibrillation or junctional rhythm Diffuse T wave abnormality, cannot exclu de possible ischemia Compared to previous tracing, T wave abnormality is similar to the old tracing A bnormal ECG NO PREVIOUS TRACING DOCTOR: Sharan Barth Interpretating Date/Time 05/02/2018 19:51:42
--- NOTE | 2018-05-02 19:54 | ECG ---
Date Performed: 05/01/2018 Time Performed: 16:02:50 PTAGE: 87 years EKG: Atrial fibrillation with controlled ventricular rate and PVCs Nonspecific ST-T wave changes Compared to previous tracing, T wave abnormality slightly more promient Abnormal ECG PREVIOUS TRACING : 05/01/2018 09.59 DOCTOR: Sharan Barth Interpretating Date/Time 05/02/2018 19:52:43
--- NOTE | 2018-05-02 19:54 | ECG ---
Date Performed: 05/02/2018 Time Performed: 05:06:40 PTAGE: 87 years EKG: UNDERLYING RHYTHM IS DIFFICULT TO DISCERN, SUSPECT POSSIBLE ATRIAL FIBRILLATION OR JUNCTION AL RHYTHM DIFFUSE ST-T WAVE ABNORMALITY, POSSIBLY FROM LVH, SIMILAR TO THE PRIOR TRACINGS Abnormal EC G PREVIOUS TRACING : 05/01/2018 16.02 DOCTOR: Sharan Barth Interpretating Date/Time 05/02/2018 19:53:44
== END 2018-05-02 14:37 | disposition home or self-care (01) ==
LOC: HSDI 09:10 → HCVI 09:23
PROVIDERS: ADMIT Internal Medicine Cardiovascular Disease; ATTEND Internal Medicine Cardiovascular Disease
PROC: TAVRHYB (ICD-10-PCS; 2018-05-01 15:00)